=== PATIENT | female | born 1955 | race Asian ===

== ENCOUNTER 2017-03-31 13:48 | Emergency (ER) | payer OTHER ==
[2017-03-31 14:26] VITALS: BP 132/80
--- NOTE | 2017-04-01 12:51 | UC ---
Israel Suárez Salem, [facility] on 03/31/17 at 1421 . Altered Mental Status HPI - HPI Summary HPI Summary: In Room note: Patient is a 62 y/o female who presents to the with AMS since today. reports pt vomited 4 times yesterday and twice today. He also reports a high fever (in the 100s), fatigue, chills, and weakness. They deny any recent travels. note: Patient brought into the by her complaining of headache, fatigue, and according to the AMS. Her states she has had a high fever for 2 days. - History Of Current Complaint Chief Complaint: UCAlteredMentalStatus Stated Complaint: WEAKNESS AND HIGH FEVER Hx Obtained From: Patient Onset/Duration: Gradual Onset, Lasting Hours, Still Present Timing: Constant Severity Initially: Moderate Severity Currently: Moderate Character: Responsiveness Aggravating Factor(s): Nothing Alleviating Factor(s): Nothing Associated Signs And Symptoms: Positive: Vomiting, Headache, Weakness - Allergies/Home Medications Allergies/Adverse Reactions: Allergies Allergy/AdvReac Type Severity Reaction Status Date / Time Naproxen [From Naprosyn] Allergy Unknown Verified 10/17/16 14:32 Reaction Details PMH/Surg Hx/FS Hx/Imm Hx Endocrine History Of: Denies: Diabetes, Thyroid Disease Cardiovascular History Of: Reports: Hypertension Denies: Cardiac Disorders Respiratory History Of: Denies: COPD, Asthma GI/ History Of: Denies: Ulcer - Surgical History Surgical History: Yes - Family History Known Family History: Positive: Unknown - According to , non- contributory to current complaint. - Social History Alcohol Use: None Substance Use Type: None Smoking Status (MU): Never Smoked Tobacco Review of Systems Constitutional: Fever, Chills, Fatigue Gastrointestinal: Vomiting Neurological: Headache, Weakness, Other - AMS. All Other Systems Reviewed And Are Negative: Yes Physical Exam Triage Information Reviewed: Yes Appearance: Well-Nourished, Ill-Appearing, Pain Distress, Other: - Pt is laying and moaning on gurney. Vital Signs: Initial Vital Signs Temp 99.3 F 03/31/17 14:01 Pulse 82 03/31/17 14:01 Resp 22 03/31/17 14:01 BP 151/77 03/31/17 14:01 Pulse Ox 100 03/31/17 14:01 Vital Signs Reviewed: Yes Eyes: Positive: Conjunctiva Clear ENT: Positive: Other: - Her pupils appear reactive to light and she does open her eyes.. Negative: Muffled/hoarse voice Neck: Positive: Supple, No Lymphadenopathy Respiratory: Positive: Chest non-tender, Lungs clear - Anteriorly., Normal breath sounds, No respiratory distress Cardiovascular: Positive: RRR, No Murmur Abdomen Description: Positive: Nontender, No Organomegaly, Soft Bowel Sounds: Positive: Present Musculoskeletal: Positive: Strength Intact, Other: - Pt moves all four extremities on command. Neurological: Positive: Alert Psychological: Positive: Age Appropriate Behavior Skin: Negative: rashes Diagnostics - EKG Cardiac Rate: NL - NSR @ 83 bpm without ischemia. AMS Course/Dx - Course Course Of Treatment: Medications have been included in the original chart and reviewed. Patient with bp 151/57 and pulse ox of 98 was wheeled into . On gureveleth, she is supine, moaning, and responsive to commands. EKG shows NSR without ischemia. According to her she is less responsive than normal and according to pt she has a headache. Although the pt speaks Armenian, her was the primary batt packer for her. It was decided to transfer pt for further evaluation for weakness and headache. Patient is Urgent/Emergent. BP elevated due to current condition w/o HTN in PMH. - Differential Dx/Clinical Impression Differential Diagnosis/HQI/PQRI: Metabolic Disorder, Other - Infection? Viral syndrome? Provider Diagnoses: Vomiting, headache, fatigued; unclear etiology. - Provider Notifications Discussed Care Of Patient With: Dr. Castro () @ [id number]. Will accept. Discharge - Discharge Plan Condition: Guarded Disposition: TRANS HIGHER LVL OF CARE FAC Referrals: Ridge Mack MD [Primary Care Provider] - The documentation as recorded by the Israel kaur Salem accurately reflects the service I personally performed and the decisions made by me, Samir Boggs MD.
== END 2017-03-31 14:25 | disposition short-term general hospital (02) ==
LOC: UCEAST 13:48
DX: R11.10 Vomiting, unspecified (principal); R51 Headache; R53.83 Other fatigue; I10 Essential (primary) hypertension
CPT/HCPCS: 93005; 99213; G0463

== ENCOUNTER 2017-03-31 14:44 | Inpatient (IN) | payer OTHER ==
[2017-03-31] MEDS ORDERED: Ondansetron INJ* 2 MG/ML VIAL IV ONE (16:13)
[2017-03-31] MEDS ORDERED: NS 0.9% 1000 ML* 1,000 ML IV ONE (16:13)
[2017-03-31] MEDS ORDERED: Morphine INJ* 4 MG/ML 1 ML SYRINGE IV ONE ×2 (16:14→18:26)
[2017-03-31 16:16] LABS: Hematocrit 42 % (35-47); Hemoglobin 13.9 g/dl (12.0-16.0); Mean Corpuscular HGB Conc 34 g/dl (31-36); Mean Corpuscular Hemoglobin 30 pg (27-31); Mean Corpuscular Volume 89 fL (80-97); Mean Platelet Volume 9 um3 (7.4-10.4); Red Blood Count 4.66 10^6/ul (4.0-5.4); Red Cell Distribution Width 13 % (10.5-15); White Blood Count 15.1 10^3/ul (3.5-10.8)
--- NOTE | 2017-03-31 16:35 | RAD ---
INDICATION: Weakness COMPARISON: Chest x-ray dated June 14, 2009 TECHNIQUE: Single AP portable view of the chest was obtained. FINDINGS: Image quality is compromised due to the relative inferiority of a portable chest x-ray. The heart and mediastinum exhibit normal size and contour. The lungs are grossly clear. There is no evidence of a large pleural effusion. Visualized bones are normal for the patient's age. IMPRESSION: No radiographic evidence for acute cardiopulmonary abnormality on this portable chest x-ray.
[2017-03-31 16:43] LABS: Albumin 4.2 g/dL (3.2-5.2); BUN/Creatinine Ratio 29.7 (8-20); Calcium 9.6 mg/dL (8.6-10.3); EGFR African American 120.5 (>60); EGFR Non-African American 93.7 (>60); Globulin 4.1 g/dL (2-4); Potassium 4.1 mmol/L (3.5-5.0); Total Bilirubin 0.7 mg/dL (0.2-1.0); Total Protein 8.3 g/dL (6.4-8.9)
[2017-03-31] MEDS ORDERED: Iohexol 350* (CONTRAST) 500 ML MDV IV ONE (17:01)
--- NOTE | 2017-03-31 17:49 | RAD ---
INDICATION: Vertigo and headache COMPARISON: None. TECHNIQUE: Contiguous axial sections of the brain were obtained from the skull base to the vertex without contrast. FINDINGS: Involving the right parietal and temporal lobe there is an intracranial hemorrhage that measures 3.4 x 5.3 cm in the axial plane and 4.1 cm in the cephalocaudal projection. There is surrounding vasogenic edema. Elsewhere the brain is normal in appearance exhibiting normal vicente-white matter differentiation. There is a small amount of mass effect exerted on the right posterior ventricular horn effacing the right posterior ventricle. Overall there is a small degree of 3 mm right to left midline shift. There is currently no evidence of tentorial herniation. No significant focal osseous abnormality is present. There is a fusion of the bilateral mastoid air cells more severe on the right than the left. There is a small amount of mucosal thickening of the ethmoid air cells. IMPRESSION: CT findings are compatible with intraparenchymal bleed involving the right posterior parietal and temporal lobes as described above. Findings reported Dr. Castro over the telephone at 1745 hours on March 31, 2017.
[2017-03-31] MEDS ORDERED: Morphine INJ* 2 MG/ML 1 ML SYRINGE IV PRN (18:33)
--- NOTE | 2017-03-31 18:33 | ED ---
Maximo Suárez Rebecca, scribed for Yasemin Castro MD on 03/31/17 at 1605 . Dizziness - HPI Summary HPI Summary: Pt is a 62 y/o F BIBA referred from [facility] who presents to ED c/o moderate dizziness characterized as the room spinning. Sx began suddenly yesterday morning and have been constant since onset. Sx aggravated and alleviated by nothing. Additionally c/o VARGAS, generalized weakness and fatigue. VARGAS is currently moderate, ranked 6/10. Pt reports she does not typically get HAs. Denies ear pain and diplopia. - History Of Current Complaint Chief Complaint: EDGeneral Stated Complaint: WEAKNESS Time Seen by Provider: 03/31/17 15:48 Hx Obtained From: Patient Onset/Duration: Still Present, Suddenly Timing: Constant Severity Initially: Moderate Severity Currently: Moderate Character: Room Spinning Aggravating Factor(s): Nothing Alleviating Factor(s): Nothing Associated Signs And Symptoms: Positive: Other: - VARGAS, generalized weakness, fatigue - Allergies/Home Medications Allergies/Adverse Reactions: Allergies Allergy/AdvReac Type Severity Reaction Status Date / Time Naproxen [From Naprosyn] Allergy Unknown Verified 10/17/16 14:32 Reaction Details Home Medications: Home Medications Acetaminophen TAB* [Tylenol TAB*] 650 mg PO Q6H PRN 03/31/17 [History Confirmed 03/31/17] Aspirin EC Low Dose* [Ecotrin EC Low Dose 81 MG*] 81 mg PO DAILY 03/31/17 [ History Confirmed 03/31/17] PMH/Surg Hx/FS Hx/Imm Hx Endocrine/Hematology History: Denies: Hx Diabetes, Hx Thyroid Disease Cardiovascular History: Reports: Hx Hypertension Respiratory History: Denies: Hx Asthma, Hx Chronic Obstructive Pulmonary Disease (COPD) GI History: Denies: Hx Ulcer - Cancer History Hx Chemotherapy: No Hx Radiation Therapy: No Infectious Disease History: No Infectious Disease History: Denies: Hx Clostridium Difficile, Hx Hepatitis, Hx Human Immunodeficiency Virus (HIV), Hx of Known/Suspected MRSA, Hx Shingles, Hx Tuberculosis, Hx Known/ Suspected VRE, Hx Known/Suspected VRSA, History Other Infectious Disease, Traveled Outside the [place] in Last 30 Days - Family History Known Family History: Negative: Hypertension - Social History Alcohol Use: None Substance Use Type: Reports: None Smoking Status (MU): Never Smoked Tobacco Review of Systems Positive: Fever, Other - Generalized weakness Negative: Diplopia Negative: Ear Ache Neurological: Other - Dizziness - room spinning Positive: Headache All Other Systems Reviewed And Are Negative: Yes Physical Exam - Summary Physical Exam Summary: General: Looks very uncomfortable and mildly ill appearing Skin: Warm, Skin Color Reflects Adequate Perfusion, Dry Eyes: EOMI, FERDINAND, no nystagmus ENT: Pharynx normal, TMs normal, no meningismus Neck: Supple, nontender Respiratory: CTA, breath sounds present, no rhonchi, no wheezes, no rales Cardiovascular: RRR, no murmur, no rub, no gallop Abdomen: Soft, nontender, Non-distended, no guarding, no rebound Bowel: Present Musculoskeletal: RHONDA, No edema Neuro: Sensory/motor intact, A&Ox3, CN intact 2-12 Psych: Affect/mood appropriate Triage Information Reviewed: Yes Vital Signs On Initial Exam: Initial Vitals Temp Pulse Resp BP Pulse Ox 99.1 F 83 16 133/76 100 03/31/17 14:57 03/31/17 14:57 03/31/17 14:57 03/31/17 14:57 03/31/17 14:57 Vital Signs Reviewed: Yes - [place] Coma Scale Coma Scale Total: 15 Diagnostics - Vital Signs Vital Signs Temp Pulse Resp BP Pulse Ox 03/31/17 15:02 79 16 99 03/31/17 15:00 133/76 03/31/17 14:57 99.1 F 83 16 133/76 100 - Laboratory Lab Results: Lab Results 03/31/17 03/31/17 03/31/17 Range/Units 14:00 14:00 14:00 WBC 15.1 H (3.5-10.8) 10^3/ul RBC 4.66 (4.0-5.4) 10^6/ul Hgb 13.9 (12.0-16.0) g/dl Hct 42 (35-47) % MCV 89 (80-97) fL MCH 30 (27-31) pg MCHC 34 (31-36) g/dl RDW 13 (10.5-15) % Plt Count 303 (150-450) 10^3/ul MPV 9 (7.4-10.4) um3 Neut % (Auto) 73.5 (38-83) % Lymph % (Auto) 21.5 L (25-47) % [place] % (Auto) 4.7 (1-9) % Eos % (Auto) 0 (0-6) % Baso % (Auto) 0.3 (0-2) % Absolute Neuts (auto) 11.1 H (1.5-7.7) 10^3/ul Absolute Lymphs (auto) 3.2 (1.0-4.8) 10^3/ul Absolute Monos (auto) 0.7 (0-0.8) 10^3/ul Absolute Eos (auto) 0 (0-0.6) 10^3/ul Absolute Basos (auto) 0 (0-0.2) 10^3/ul Absolute Nucleated RBC 0 10^3/ul Nucleated RBC % 0 INR (Anticoag Therapy) 0.93 (0.89-1.11) APTT 31.4 (26.0-36.3) seconds Sodium 134 (133-145) mmol/L Potassium 4.1 (3.5-5.0) mmol/L Chloride 101 (101-111) mmol/L Carbon Dioxide 24 (22-32) mmol/L Anion Gap 9 (2-11) mmol/L BUN 19 (6-24) mg/dL Creatinine 0.64 (0.51-0.95) mg/dL Est GFR ( Amer) 120.5 (>60) Est GFR (Non-Af Amer) 93.7 (>60) BUN/Creatinine Ratio 29.7 H (8-20) Glucose 112 H (70-100) mg/dL Calcium 9.6 (8.6-10.3) mg/dL Total Bilirubin 0.70 (0.2-1.0) mg/dL AST 32 (13-39) U/L ALT 27 (7-52) U/L Alkaline Phosphatase 61 (34-104) U/L Troponin I 0.00 (<0.04) ng/mL Total Protein 8.3 (6.4-8.9) g/dL Albumin 4.2 (3.2-5.2) g/dL Globulin 4.1 H (2-4) g/dL Albumin/Globulin Ratio 1.0 (1-3) Result Diagrams: 03/31/17 14:00 03/31/17 14:00 Lab Statement: Any lab studies that have been ordered have been reviewed, and results considered in the medical decision making process. - Radiology CXR Radiology Interpretation Completed By: Radiologist - No radiographic evidence for acute cardiopulmonary abnormality on this portable chest x-ray. - CT Brain CT CT Interpretation: Positive (See Comments) - CT findings are compatible with intraparenchymal bleed involving the right posterior parietal and temporal lobes as described above. Findings reported Dr. Castro over the telephone at 1745 hours on March 31, 2017. CT Interpretation Completed By: Radiologist - EKG 1453 Cardiac Rate: NL - 80 bpm EKG Rhythm: Sinus Rhythm ST Segment: Normal National Institutes Of Health - NIH Scale Level of Consciousness: Alert/Keenly Responsive Ask Patient the Month and His/Her Age: Both Correct Ask Pt to Open/Close Eyes and Skoog Machine Operator/Release Non-Paretic Hand: Both Correctly Best Gaze (Only Horizontal Eye Movement): Normal Visual Field Testing: No Visual Loss Facial Paresis-Pt to Smile & Close Eyes or Grimace Symmetry: Normal/Symmetrical Motor Function - Right Arm: No Drift-Holds 10 Seconds Motor Function - Left Arm: No Drift-Holds 10 Seconds Motor Function - Right Leg: No Drift-Holds 10 Seconds Motor Function - Left Leg: No Drift-Holds 10 Seconds Limb Ataxia-Must be out of Proportion to Weakness Present: Absent Sensory (Use Pinprick to Test Arms/Legs/Trunk/Face): Normal Best Language (Describe Picture, Name Items): No Aphasia Dysarthria (Read Several Words): Normal Extinction and Inattention: No Abnormality Total Score: 0 Dizzy Course/Dx - Course Course Of Treatment: 62 yo female with headache and vertigo with right temporal- parietal blood. Call made to Dr. Herrera who asked that pt be admitted to ICU by the hospitalist team and he will consult - Diagnoses Provider Diagnoses: Intracerebral bleed - Provider Notifications Discussed Care Of Patient with: Dr. Herrera, neuro surgeon, who advised that pt be admitted. Dr. Shelton, hopsitalist at 1742, who accepts pt for admission. Time Discussed With Above Provider: 17:35 Discharge - Discharge Plan Condition: Critical Disposition: ADMITTED TO [facility] documentation as recorded by the Maximo kaur Rebecca accurately reflects the service I personally performed and the decisions made by , Yasemin Castro MD.
[2017-03-31] MEDS ORDERED: Labetalol IV* 5 MG/ML 20 ML VIAL IV PUSH PRN (18:35)
--- NOTE | 2017-03-31 18:46 | RAD ---
CPT II: CPT II Codes: 3100F INDICATION: Vertigo and headache COMPARISON: None TECHNIQUE: A CT angiogram of the head and neck was performed with 80 cc of Omnipaque 350. Contiguous axial sections were obtained from the thoracic inlet through the reno-sparks of Pfeiffer. Images were reconstructed in the sagittal, coronal planes and in a 3-D volume rendered format. The distal cervical internal carotid artery diameter is used as the denominater for stenosis measurement. CTA NECK: The common and internal carotid arteries are patent without hemodynamically significant stenosis. Right: The right carotid bulb measures 7 mm in diameter. The inferior right internal carotid artery measures 6 mm in diameter. This yields approximately 14% degree stenosis. Left: The left carotid bulb measures 8 mm in diameter and the inferior most left internal carotid artery also measures approximately 8 mm yielding 0% stenosis. The vertebral arteries are patent without gross abnormality. CTA of the brain: As was depicted on the same day noncontrast CT of the brain, there is a 4.4 x 3.6 cm parenchymal bleed involving the right parietal and temporal lobes. The spleen measures 3.5 cm in cephalocaudal projection. There is no definite active extravasation into the bleed on the arterial phase imaging. The internal carotid, anterior and middle cerebral arteries appear are patent without high grade stenosis or occlusion. The vertebral, basilar and posterior cerebral arteries appear patent without high grade stenosis or occlusion. The left posterior communicating artery is either extremely diminutive or absent. No focal luminal filling defect, aneurysm or vascular malformation is seen. IMPRESSION: 1. Normal CT angiography of the head and neck. 2. Intraparenchymal bleed involving the right parietal and temporal lobes.
--- NOTE | 2017-03-31 19:02 | PN ---
Hospitalist Progress Note HOSPITALIST ADDENDUM Case reviewed and d/w A. Toni WOO. Mrs. Harden is a 62yo F with PMH of HTN, who presented to ED with c/o headache and lethargy. Labs, CT/CTA head reviewed. Found to have right parietal/temporal intraparenchymal bleed. On low dose lisinopril with apparent good BP control. On ASA as outpatient - last dose 2 days ago. Will admit to ICU, monitor BP closely, Neurosurgery already consulted. Plan to repeat CT in AM.
[2017-03-31] MEDS ORDERED: Acetaminophen SUPP* 650 MG SUPP PR PRN (19:37)
[2017-03-31] MEDS: Morphine INJ* 2 MG/ML 1 ML SYRINGE IV PRN (20:06)
--- NOTE | 2017-04-01 03:42 | HP ---
ADMISSION HISTORY AND PHYSICAL: DATE OF ADMISSION: 03/31/17 PRIMARY CARE PROVIDER: Ridge Mack MD ADMITTING PROVIDER: CHILO Gaitan. CONSULTING NEUROSURGEON: Santhosh Herrera MD ATTENDING PHYSICIAN: Leonie Jara MD * (dictated by CHILO Gaitan.) CHIEF COMPLAINT: Headache. HISTORY OF PRESENT ILLNESS: This is a 62-year-old female with a history of hypertension who presented to the emergency department with complaints of headache accompanied by her . Her provides majority of her history as her Japanese is fairly limited. The patient's headache started yesterday morning and became progressively worse. She had some associated generalized weakness and dizziness as well as associated backache and mild cough. No associated confusion or difficulty with balance or speech. No numbness or tingling. No obvious weakness or changes in speech. Her states that she has been in her usual state of health up until yesterday morning. No recent trauma. She has no personal history of cardiopulmonary disease. No similar complaints in the past. No prior hospitalizations. PAST MEDICAL HISTORY: Hypertension. PAST SURGICAL HISTORY: Hysterectomy. HOME MEDICATIONS: 1. Aspirin 81 mg p.o. daily. 2. Vitamin D3 1000 units p.o. daily. 3. Lisinopril 2.5 mg p.o. daily. 4. Acetaminophen 650 mg p.o. q.6 hours as needed for pain. FAMILY HISTORY: No history of stroke, aneurysm, or bleeding disorders. SOCIAL HISTORY: The patient is a [place] and her primary language is Tanzanian. She lives at home with her and son. No history of smoking or regular alcohol consumption. REVIEW OF SYSTEMS: As noted above in HPI. Otherwise, all systems reviewed and negative. PHYSICAL EXAMINATION GENERAL: This is a very pleasant middle aged [place] female who appears to be uncomfortable and accompanied by her who provides the majority of the translation. VITAL SIGNS: Initial vitals are temperature 99.1 degrees Fahrenheit, pulse 83 beats per minute, respiratory rate 16, oxygen saturation 100% on 2 L via nasal cannula, blood pressure 133/76 mmHg. HEENT: Head is normocephalic and atraumatic. Mucous membranes are pink and moist. RESPIRATORY: Lungs are clear to auscultation without wheezes, crackles, or rhonchi. CARDIOVASCULAR: Heart has a regular rate and rhythm without murmurs, rubs, or gallops. ABDOMEN: Soft and nontender to palpation. EXTREMITIES: No lower extremity edema. SKIN: Limited exam shows no concerning rashes or lesions. NEURO: The patient's speech is intact. She is alert and appropriately oriented with a GCS of 15. She has a very slight left facial droop, but otherwise cranial nerves II through XII are intact. She has no gross sensation deficit. Strength is 5/5 in all extremities. Gait was not specifically assessed. LABORATORY EVALUATION: CBC shows white blood cell count of 15,100, hemoglobin of 13.9 g/dL and platelet count of 303,000. INR normal at 0.93. PTT normal at 31.4. Comprehensive metabolic panel is unremarkable with sodium of 134 mmol/L, potassium 4.1. BUN 19, creatinine 0.64 with an estimated GFR of 93. Random glucose of 112 mg/dL. Transaminases and total bilirubin within normal limits. Troponin negative at 0. ASSESSMENT AND PLAN: This is a 62-year-old female with history of hypertension who presents with what appears to be a spontaneous intracranial hemorrhage. 1. Intracranial hemorrhage - this appears to be spontaneous in nature. No associated trauma or severe hypertension. No known family history of bleeding disorders. The patient is mentating well with a minimal midline shift and no evidence of cerebral herniation. Neurosurgeon, Dr. Herrera has been consulted in the emergency department, he recommends admission to ICU for further monitoring. We will maintain head of bed at [address] Herrera recommends again seizure prophylaxis at this time. Recommends repeat CT scan at approximately 5 a.m. tomorrow morning, which will be approximately 12 hours since her initial scan. We will maintain blood pressure, systolic pressure less than 150 mmHg. Her last dose of aspirin was approximately 2 days ago, she believes that she last took a dose perhaps on 03/28/17. At this time, her deficits are rather mild. We will ask nursing to perform neurologic checks every 4 hours overnight and perform a bedside swallow evaluation at this time. CTA has not been officially read at this time, but has been reviewed personally by Dr. Herrera who did not see any major aneurysmal changes that would indicate need for transfer at this time. 2. History of hypertension: The patient is normotensive in the emergency department and just on low dose lisinopril at home. We will manage her blood pressure with IV labetalol at this time with goal of systolic pressure less than 150 mmHg. 3. Code status: The patient is full code. 4. Healthcare proxy is the patient's . 5. DVT prophylaxis - SCD's. Chemical prophylaxis is contraindicated. 6. Disposition: The patient is being admitted to inpatient ICU care with an expected length of stay to be greater than 2 midnights. CHILO GAITAN CC: Ridge Mack MD* [id number]/CPS #: [id number] MTDD
[2017-04-01] MEDS: Morphine INJ* 2 MG/ML 1 ML SYRINGE IV PRN ×2 (05:21→10:22)
[2017-04-01 05:43] LABS: Hematocrit 40 % (35-47); Hemoglobin 13.7 g/dl (12.0-16.0); Mean Corpuscular HGB Conc 34 g/dl (31-36); Mean Corpuscular Hemoglobin 30 pg (27-31); Mean Corpuscular Volume 89 fL (80-97); Mean Platelet Volume 8 um3 (7.4-10.4); Red Blood Count 4.53 10^6/ul (4.0-5.4); Red Cell Distribution Width 13 % (10.5-15)
[2017-04-01 05:55] LABS: BUN/Creatinine Ratio 37.3 (8-20); Calcium 9.1 mg/dL (8.6-10.3); EGFR African American 132.4 (>60); EGFR Non-African American 102.9 (>60); Potassium 3.7 mmol/L (3.5-5.0)
--- NOTE | 2017-04-01 07:43 | RAD ---
HISTORY: Monitor intracranial hemorrhage COMPARISONS: March 31, 2017 at 5:05 PM TECHNIQUE: Multiple contiguous axial CT scans were obtained of the head without intravenous contrast. FINDINGS: HEMORRHAGE/INFARCT: Again noted is intraparenchymal hematoma centered in the right temporal lobe and inferior parietal lobe. When measured at comparable levels, this is stable from the previous examination. Elsewhere, there is no hemorrhage or acute infarct. MASSES/SHIFT: There is minimal subfalcine shift to the left, of approximately 0.4 cm. EXTRA-AXIAL SPACES: There are no extra-axial fluid collections. SULCI AND VENTRICLES: There is mass effect upon the right lateral ventricle and third ventricle CEREBRUM: As noted above, there is intraparenchymal hematoma centered within the right temporal lobe and inferior parietal lobe with extension into the occipital lobe. This stable in size and extent from the earlier examination of March 31, 2017. There is minimal associated vasogenic edema. BRAINSTEM: There are no focal parenchymal abnormalities. CEREBELLUM: There are no focal parenchymal abnormalities. VESSELS: The vessels are grossly normal. PARANASAL SINUSES: The paranasal sinuses are clear. There are bilateral mastoid effusions ORBITS: The orbits are unremarkable. BONES AND SOFT TISSUE: No bone or soft tissue abnormalities are noted. OTHER: None IMPRESSION: STABLE RIGHT CEREBRAL HEMATOMA WITH MINIMAL SUBFALCINE SHIFT TO THE LEFT
[2017-04-01] MEDS: Mannitol 25% (12.5 GM) 50 ML* 12.5 GM/50 ML VIAL IV SCH ×3 (08:00→21:14)
--- NOTE | 2017-04-01 09:55 | CONSULT ---
Consult Consult: Neurosurgery Consult Date of consult: 04/01/17 Reason for consult: Intracranial hemorrhage HPI: This is a 62 year old female with past medical history significant for hypertension, controlled with medication, and taking aspirin 81mg who presented to the [facility] ED with complaint of headache and dizziness.The headache began yesterday morning and worsened throughout the day prompting medical evaluation. No recent head trauma or falls. CT of the brain on 03/31/17 shows intracranial hemorrhage of the right parietal and temporal lobes. She was admitted to the ICU for further work up and monitoring. This morning she continues to complain of a frontal headache, unchanged from yesterday. She also reports dizziness and a sore throat but denies pain elsewhere. She denies vision changes, hearing changes, difficulty swallowing, nausea, numbness, tingling and weakness in the upper and lower extremities. It is difficult to gather a history and ROS from the patient secondary to language barrier. However, her is able to assist with translations. Past medical history: 1. Hypertension Past surgical history: 1. Hysterectomy Allergies: 1. Naproxen Home medications: 1. Cholecalciferol TAB* [Vitamin D TAB*] 1,000 unit PO DAILY 10/17/16 [History Confirmed 03/31/17] 2. Lisinopril [Lisinopril 2.5 MG-] 2.5 mg PO DAILY 10/17/16 [History Confirmed 03/31/17] 3. Acetaminophen TAB* [Tylenol TAB*] 650 mg PO Q6H PRN 03/31/17 [History Confirmed 03/31/17] 4. Aspirin EC Low Dose* [Ecotrin EC Low Dose 81 MG*] 81 mg PO DAILY 03/31/17 [ History Confirmed 03/31/17] Social history: This patient lives at home with her . She is a nonsmoker and does not consume alcohol. ROS: Full ROS completed; pertinent findings stated in HPI and all others negative. Responses limited secondary to language barrier. Physical Exam: Vital Signs: Temp Pulse Resp BP Pulse Ox 99.1 F 72 26 120/51 98 04/01/17 09:00 04/01/17 09:00 04/01/17 09:00 04/01/17 09:00 04/01/17 09:00 General: Alert, laying in bed with hands on forehead. Complains of headache. HEENT: Head is normocephalic and atraumatic. Slight left eye ptosis and pupil is irregular; per and patient this is baseline. EOMI. Gross hearing intact. Moist mucus membranes. Neck: Supple, symmetric and nontender. CV: Regular rate and rhythm. Pedal pulses palpable. Radial pulses 2+ and equal. Lungs: Breathing is nonlabored and clear. Abdomen: Normoactive bowel sounds. Abdomen is flat, nondistended and nontender. Neuro: Speech is clear and coherent. Answers questions appropriately. CN II-XII intact. Strength 5/5 in upper and lower extremities. Sensation intact throughout. Extremities: Full ROM in upper and lower extremities. Imagin. CT brain on 03/31/17 shows right intracranial hemorrhage. 2. Follow up CT brain on 04/01/27 shows right intracranial hemorrhage unchanged from previous scan. Assessment: This is a 62 year old female with past medical history significant for HTN controlled with medication and on aspirin 81mg who presented to the [facility] ED with headache and was found to have right ICH. She is admitted to the ICU for continued neuro monitoring and observation. Frontal headache and dizziness continues. Repeat CT brain is unchanged. She is neurologically stable at this time. There is no indication for surgery at this time. Plan: 1. Continue neuro checks. 2. Continue bedrest and HOB 30 degrees. 3. Delarosa catheter 4. Mannitol 25% (12.5gm) 50ml, 12.5gm IV every 6 hours. IV infusion over 30-60 minutes. 5. LR 75ml/hour
--- NOTE | 2017-04-01 10:24 | PN ---
Subjective Date of Service: 04/01/17 Interval History: This is a 62 yo female admitted with spontaneous R sided intracranial hemorrhage with fairly minimal deficits. This am, patient is complaining of persistent VARGAS which is quite severe. She passed bedside swallow eval by nursing at admission. No new deficits noted overnight. Objective Active Medications: Acetaminophen (Tylenol Supp*) 650 mg [place] Q4H PRN PRN Reason: Pain/fever Last Admin: 03/31/17 23:59 Dose: 650 mg Lactated Ringer's (Lactated Ringers 1000 Ml Bag*) 1,000 mls @ 75 mls/hr IV PER RATE [facility] Last Admin: 04/01/17 08:00 Dose: 75 mls/hr Labetalol HCl (Trandate Iv*) 10 mg IV PUSH Q2H PRN PRN Reason: sBP>150 mmHg Mannitol (Mannitol 25% (12.5 Gm) 50 Ml*) 12.5 gm IV Q6H [facility] Last Admin: 04/01/17 08:00 Dose: 12.5 gm Morphine Sulfate (Morphine Inj (Syringe)*) 2 mg IV Q4H PRN PRN Reason: PAIN Last Admin: 04/01/17 05:21 Dose: 2 mg Ondansetron HCl (Zofran Inj*) 4 mg IV Q4H PRN PRN Reason: NAUSEA/VOMITING Vital Signs: Temp Pulse Resp BP Pulse Ox 99.1 F 72 26 120/51 98 04/01/17 09:00 04/01/17 09:00 04/01/17 09:00 04/01/17 09:00 04/01/17 09:00 Appearance: Middle aged female who appears uncomfortable. Speaks some [place] Irish. Respiratory: Symmetrical Chest Expansion and Respiratory Effort, Clear to Auscultation Cardiovascular: NL Sounds; No Murmurs; No JVD, RRR Abdominal: NL Sounds; No Tenderness; No Distention Extremities: No Edema Skin: No Rash or Ulcers Neurological: Alert and Oriented x 3, - - very mild L facial droop noted, strength and ROM intact in all extremities Result Diagrams: 04/01/17 05:25 04/01/17 05:25 Additional Lab and Data: . Microbiology and Other Data: Microbiology 03/31/17 22:05 Nasal Screen MRSA (PCR)([facility]) - Final Nasal Mrsa Negative Diagnostic Imaging: CT head 03/31 - R posterior parietal/temporal hemorrhage with associated vasogenic edema and 3mm midline shift Ct head 04/01 - Essentially unchanged from initial scan with minimal midline shift Assess/Plan/Problems-Billing Assessment: This is a 62 yo female with a h/o controlled HTN who presents with spontaneous ICH. - Patient Problems (1) Intracranial hemorrhage Comment: R posterior parietal/temporal lobe Appears spontaneous, nl CTA, no recent trauma ASA has been discontinued Minimal deficit with no change in exam overnight, bleed appears stable on repeat imaging Mannitol has been initiated by neurosurgery team due to complaint of persistent VARGAS Appreciated neurosurgery involvement Maintain bedside and HOB at 30 deg (2) HTN (hypertension) Comment: Controlled goal for sBP <150 mmHg (3) Full code status (4) DVT prophylaxis Comment: SCDs Status and Disposition: Inpatient, maintain ICU level monitoring
[2017-04-01] MEDS ORDERED: Morphine INJ* 2 MG/ML 1 ML SYRINGE IV PRN (12:01)
[2017-04-01] MEDS: oxyCODONE/Acetamin 5/325 MG* TAB PO PRN ×2 (16:00→22:08)
[2017-04-02] MEDS: Mannitol 25% (12.5 GM) 50 ML* 12.5 GM/50 ML VIAL IV SCH ×4 (04:15→20:02)
[2017-04-02] MEDS: Morphine INJ* 4 MG/ML 1 ML SYRINGE IV PRN ×3 (07:38→20:03)
--- NOTE | 2017-04-02 08:11 | PN ---
Progress Note - Progress Note SOAP: Subjective: [] More alert Complains of feeling tired, hot Headache seems better Objective: []Neuro intact Assessment: []Stable Plan: []Decrease Mannitol to Q 12h Get F/U CT in AM
[2017-04-02 08:12] LABS: BUN/Creatinine Ratio 21.3 (8-20); Calcium 8.2 mg/dL (8.6-10.3); EGFR African American 172.1 (>60); EGFR Non-African American 133.8 (>60); Potassium 3.5 mmol/L (3.5-5.0)
--- NOTE | 2017-04-02 08:46 | PN ---
Subjective Date of Service: 04/02/17 Interval History: Patient reports some improvement in VARGAS this am, but still persistent. No n/v. Appetite good. No CP, SOB, abd pain. Reports fatigue and generalized weakness. No focal weakness. Objective Active Medications: Acetaminophen (Tylenol Tab*) 650 mg PO Q6H PRN PRN Reason: pain/fever Lactated Ringer's (Lactated Ringers 1000 Ml Bag*) 1,000 mls @ 75 mls/hr IV PER RATE [facility] Last Admin: 04/01/17 08:00 Dose: 75 mls/hr Labetalol HCl (Trandate Iv*) 10 mg IV PUSH Q2H PRN PRN Reason: sBP>150 mmHg Mannitol (Mannitol 25% (12.5 Gm) 50 Ml*) 12.5 gm IV Q12H [facility] Last Admin: 04/02/17 07:56 Dose: Not Given Morphine Sulfate (Morphine Inj (Syringe)*) 4 mg IV Q4H PRN PRN Reason: PAIN Last Admin: 04/02/17 07:38 Dose: 4 mg Ondansetron HCl (Zofran Inj*) 4 mg IV Q4H PRN PRN Reason: NAUSEA/VOMITING Oxycodone/Acetaminophen (Percocet 5/325 Tab*) 1 tab PO Q4H PRN PRN Reason: PAIN Last Admin: 04/01/17 22:08 Dose: 1 tab Vital Signs: Temp Pulse Resp BP Pulse Ox 100.3 F 72 15 110/51 95 04/02/17 08:30 04/02/17 08:30 04/02/17 08:30 04/02/17 08:30 04/02/17 08:30 Oxygen Devices in Use Now: Nasal Cannula Appearance: Fatigued appearing middle aged female in NAD. Accompanied by her . Sleeping upon entering room, but easily awakened to voice Respiratory: Symmetrical Chest Expansion and Respiratory Effort, Clear to Auscultation Cardiovascular: NL Sounds; No Murmurs; No JVD, RRR Abdominal: NL Sounds; No Tenderness; No Distention Extremities: No Edema Skin: No Rash or Ulcers Neurological: Alert and Oriented x 3, - - slight L ptosis noted this am, geospatial scientist otherwise intact, strength and ROM intact in extremities, sensation is grossly intact Result Diagrams: 04/01/17 05:25 04/02/17 07:45 Additional Lab and Data: . Microbiology and Other Data: Microbiology 03/31/17 22:05 Nasal Screen MRSA (PCR)([facility]) - Final Nasal Mrsa Negative Diagnostic Imaging: CT head 03/31 - R posterior parietal/temporal hemorrhage with associated vasogenic edema and 3mm midline shift Ct head 04/01 - Essentially unchanged from initial scan with minimal midline shift Assess/Plan/Problems-Billing Assessment: This is a 62 yo female with a h/o controlled HTN who presents with spontaneous ICH. - Patient Problems (1) Intracranial hemorrhage Comment: R posterior parietal/temporal lobe Appears spontaneous, nl CTA, no recent trauma ASA has been discontinued Minimal deficit without change in neuro exam Bleed appears stable on repeat imaging Mannitol decreased to q12h Appreciated neurosurgery involvement Maintain bedrest and HOB at 30 deg Plan for repeat CT tomorrow am with possible transfer from ICU and PT eval if stable (2) HTN (hypertension) Comment: Controlled goal for sBP <150 mmHg (3) Full code status (4) DVT prophylaxis Comment: SCDs Status and Disposition: Inpatient, maintain ICU level monitoring
[2017-04-02] MEDS: oxyCODONE/Acetamin 5/325 MG* TAB PO PRN ×2 (09:56→14:59)
[2017-04-03] MEDS: oxyCODONE/Acetamin 5/325 MG* TAB PO PRN ×3 (00:38→18:15)
[2017-04-03] MEDS: Morphine INJ* 4 MG/ML 1 ML SYRINGE IV PRN ×2 (05:45→16:26)
[2017-04-03 06:11] LABS: BUN/Creatinine Ratio 17.4 (8-20); Calcium 9.2 mg/dL (8.6-10.3); EGFR African American 176.4 (>60); EGFR Non-African American 137.2 (>60); Potassium 3.9 mmol/L (3.5-5.0)
--- NOTE | 2017-04-03 08:16 | RAD ---
HISTORY: Follow-up intracranial hemorrhage COMPARISONS: April 01, 2017 TECHNIQUE: Multiple contiguous axial CT scans were obtained of the head without intravenous contrast. FINDINGS: HEMORRHAGE/INFARCT: Again noted is a right temporoparietal parenchymal hematoma. This is similar in size extending to the previous examination. There is associated vasogenic edema. Elsewhere, there is no hemorrhage or acute infarct. MASSES/SHIFT: There is stable minimal subfalcine shift to the left of approximately 0.4 cm. EXTRA-AXIAL SPACES: There are no extra-axial fluid collections. SULCI AND VENTRICLES: There is mass effect upon the right lateral ventricle CEREBRUM: As noted above, there is a right temporoparietal intraparenchymal hematoma with associated vasogenic edema, stable in size and appearance compared to April 01, 2017. BRAINSTEM: There are no focal parenchymal abnormalities. CEREBELLUM: There are no focal parenchymal abnormalities. VESSELS: The vessels are grossly normal. PARANASAL SINUSES: The paranasal sinuses are clear. ORBITS: The orbits are unremarkable. BONES AND SOFT TISSUE: No bone or soft tissue abnormalities are noted. OTHER: None IMPRESSION: STABLE RIGHT TEMPOROPARIETAL INTRAPARENCHYMAL HEMATOMA WITH MINIMAL SUBFALCINE SHIFT TO THE LEFT
[2017-04-03] MEDS: Mannitol 25% (12.5 GM) 50 ML* 12.5 GM/50 ML VIAL IV SCH (08:22)
--- NOTE | 2017-04-03 09:42 | PN ---
Subjective Date of Service: 04/03/17 Interval History: Patient reports some improvement in her VARGAS, but it is still persistent. Appetite is improving. No abd pain, n/v. No cough or SOB. No focal weakness, numbness/tingling. Objective Active Medications: Acetaminophen (Tylenol Tab*) 650 mg PO Q6H PRN PRN Reason: pain/fever Labetalol HCl (Trandate Iv*) 10 mg IV PUSH Q2H PRN PRN Reason: sBP>150 mmHg Morphine Sulfate (Morphine Inj (Syringe)*) 4 mg IV Q4H PRN PRN Reason: PAIN Last Admin: 04/03/17 05:45 Dose: 4 mg Ondansetron HCl (Zofran Inj*) 4 mg IV Q4H PRN PRN Reason: NAUSEA/VOMITING Oxycodone/Acetaminophen (Percocet 5/325 Tab*) 1 tab PO Q4H PRN PRN Reason: PAIN Last Admin: 04/03/17 08:35 Dose: 1 tab Vital Signs: Temp Pulse Resp BP Pulse Ox 99.2 F 65 11 110/50 97 04/03/17 06:00 04/03/17 06:00 04/03/17 08:35 04/03/17 06:00 04/03/17 06:00 Appearance: Middle aged female who appears lethargic, but improving. Accompanied by her . Some broken Sami. Ears/Nose/Mouth/Throat: Mucous Membranes Moist Respiratory: Symmetrical Chest Expansion and Respiratory Effort, - - few rhonchi at lung bases Cardiovascular: RRR Abdominal: NL Sounds; No Tenderness; No Distention Extremities: No Edema Skin: No Rash or Ulcers Neurological: Alert and Oriented x 3, - - L ptosis ( confirms this is chronic for her), CN II-XII otherwise intact, ROM and strength intact in all 4 extremities Result Diagrams: 04/01/17 05:25 04/03/17 05:35 Additional Lab and Data: . Microbiology and Other Data: Microbiology 03/31/17 22:05 Nasal Screen MRSA (PCR)([facility]) - Final Nasal Mrsa Negative Diagnostic Imaging: CT head 03/31 - R posterior parietal/temporal hemorrhage with associated vasogenic edema and 3mm midline shift Ct head 04/01 - Essentially unchanged from initial scan with minimal midline shift CT head 04/03 - Stable, unchanged Assess/Plan/Problems-Billing Assessment: This is a 62 yo female with a h/o controlled HTN who presents with spontaneous ICH. - Patient Problems (1) Intracranial hemorrhage Comment: R posterior parietal/temporal lobe Appears spontaneous, nl CTA, no recent trauma ASA has been discontinued Minimal deficit without change in neuro exam Bleed appears stable on repeat imaging Appreciated neurosurgery involvement Discontinue mannitol Patient can come off bedrest and will request PT eval Plan for MRI early next week per neurosurgery recommendation (2) HTN (hypertension) Comment: Controlled goal for sBP <150 mmHg (3) Full code status (4) DVT prophylaxis Comment: SCDs Status and Disposition: Inpatient. Plan to transfer to telemetry floor
--- NOTE | 2017-04-03 10:00 | PN ---
Progress Note - Progress Note SOAP: Subjective: [More alert this morning. Right side headache persists but less severe than yesterday. States that she is tired and hungry this morning. Denies nausea, vision changes and dizziness. ] Objective: [ Vital Signs: Temp Pulse Resp BP Pulse Ox 99.2 F 65 11 110/50 97 04/03/17 06:00 04/03/17 06:00 04/03/17 08:35 04/03/17 06:00 04/03/17 06:00 General: Alert but tired. Neuro: Answers questions appropriately. Speech is clear. Follows commands. CN II -XII intact. Motor and sensory intact. Extremities: Full ROM throughout.] Assessment: [Neurologically stable. Repeat CT brain 04/03/17- Right ICH is unchanged from previous study on 04/01/17. ] Plan: [1. Slowly increase activity; up out of bed to chair with assistance. 2. Continue neuro checks. ]
[2017-04-03] MEDS: Ondansetron INJ* 2 MG/ML VIAL IV PRN (11:06)
[2017-04-04 05:28] LABS: BUN/Creatinine Ratio 18.2 (8-20); Calcium 9.3 mg/dL (8.6-10.3); EGFR African American 143.6 (>60); EGFR Non-African American 111.6 (>60); Potassium 3.7 mmol/L (3.5-5.0)
[2017-04-04] MEDS: Morphine INJ* 4 MG/ML 1 ML SYRINGE IV PRN (07:51)
[2017-04-04] MEDS: Acetaminophen TAB* 325 MG PO PRN ×2 (07:52→19:40)
--- NOTE | 2017-04-04 08:38 | PN ---
Progress Note - Progress Note SOAP: Subjective: [Persistent but improving headache. Denies nausea, vomiting, dizziness and vision changes. Offers no further complaints. Objective: [ Vital Signs: Temp Pulse Resp BP Pulse Ox 99.4 F 66 18 122/67 98 04/04/17 07:31 04/04/17 07:31 04/04/17 07:51 04/04/17 07:31 04/04/17 07:31 General: More alert and conversational today. Neuro: Motor and sensory intact. CN II-XII intact. Speech is clear and answers questions appropriately. Extremities: Full ROM] Assessment: [Neurologically stable. Repeat CT 04/03/17 unchanged from previous studies. No surgery indicated. Patient transferred to telemetry floor yesterday.] Plan: [1. Continue to increase activity. 2. Continue pain management of VARGAS. ]
--- NOTE | 2017-04-04 11:03 | PN ---
Subjective Date of Service: 04/04/17 Interval History: Patient seen and examined at bedside. Denies any acute complaints. Reports headache is "a little better." Denies tingling/numbness, focal weakness, CP, SOB, n/v. Family History: Unchanged from Admission Social History: Unchanged from Admission Past Medical History: Unchanged from Admission Objective Active Medications: Acetaminophen (Tylenol Tab*) 650 mg PO Q6H PRN PRN Reason: pain/fever Last Admin: 04/04/17 07:52 Dose: 650 mg Labetalol HCl (Trandate Iv*) 10 mg IV PUSH Q2H PRN PRN Reason: sBP>150 mmHg Morphine Sulfate (Morphine Inj (Syringe)*) 4 mg IV Q4H PRN PRN Reason: PAIN Last Admin: 04/04/17 07:51 Dose: 4 mg Ondansetron HCl (Zofran Inj*) 4 mg IV Q4H PRN PRN Reason: NAUSEA/VOMITING Last Admin: 04/03/17 11:06 Dose: 4 mg Oxycodone/Acetaminophen (Percocet 5/325 Tab*) 1 tab PO Q4H PRN PRN Reason: PAIN Last Admin: 04/03/17 18:15 Dose: 1 tab Vital Signs 04/03/17 04/03/17 04/03/17 11:29 12:31 15:37 Temperature 97.7 F 98.4 F Pulse Rate 67 60 62 Respiratory 11 16 12 Rate Blood Pressure 110/60 124/49 (mmHg) O2 Sat by Pulse 90 92 100 Oximetry 04/03/17 04/03/17 04/03/17 16:26 17:26 18:15 Temperature Pulse Rate Respiratory 18 16 18 Rate Blood Pressure (mmHg) O2 Sat by Pulse Oximetry 04/03/17 04/03/17 04/03/17 20:00 20:06 20:15 Temperature 99.1 F Pulse Rate 66 Respiratory 16 15 15 Rate Blood Pressure 135/69 (mmHg) O2 Sat by Pulse 99 Oximetry 04/03/17 04/04/17 04/04/17 23:22 00:22 02:44 Temperature 97.5 F Pulse Rate 59 58 62 Respiratory 16 Rate Blood Pressure 119/57 (mmHg) O2 Sat by Pulse 94 Oximetry 04/04/17 04/04/17 04/04/17 04:18 06:37 07:31 Temperature 98.4 F 99.4 F Pulse Rate 59 64 66 Respiratory 16 16 Rate Blood Pressure 110/49 122/67 (mmHg) O2 Sat by Pulse 96 98 Oximetry 04/04/17 04/04/17 04/04/17 07:51 08:00 08:51 Temperature Pulse Rate Respiratory 18 18 16 Rate Blood Pressure (mmHg) O2 Sat by Pulse Oximetry Appearance: Middle aged female, lying in bed, NAD. Patient speaks limited Japanese but follow commands. at bedside. Ears/Nose/Mouth/Throat: Mucous Membranes Moist Neck: NL Appearance and Movements; NL JVP Respiratory: Symmetrical Chest Expansion and Respiratory Effort, Clear to Auscultation Cardiovascular: NL Sounds; No Murmurs; No JVD, RRR Abdominal: NL Sounds; No Tenderness; No Distention Extremities: No Edema Neurological: Alert and Oriented x 3, - - left facial droop - reports this is chronic. Patient with Lines/Tubes/Other Access: Clean, Dry and Intact Peripheral IV Nutrition: Taking PO's Result Diagrams: 04/01/17 05:25 04/04/17 04:32 Additional Lab and Data: . Microbiology and Other Data: Microbiology 03/31/17 22:05 Nasal Screen MRSA (PCR)([facility]) - Final Nasal Mrsa Negative Diagnostic Imaging: CT head 03/31 - R posterior parietal/temporal hemorrhage with associated vasogenic edema and 3mm midline shift Ct head 04/01 - Essentially unchanged from initial scan with minimal midline shift CT head 04/03 - Stable, unchanged Assess/Plan/Problems-Billing Assessment: This is a 62 yo female with a h/o controlled HTN who presents with spontaneous ICH. - Patient Problems (1) Intracranial hemorrhage Code(s): I62.9 - NONTRAUMATIC INTRACRANIAL HEMORRHAGE, UNSPECIFIED Comment: R posterior parietal/temporal lobe Appears spontaneous, nl CTA, no recent trauma ASA has been discontinued Minimal deficit without change in neuro exam Bleed appears stable on repeat imaging Appreciated neurosurgery involvement Continue PT/OT/speech eval, PMRU referral Plan for MRI early next week per neurosurgery recommendation (2) HTN (hypertension) Code(s): I10 - ESSENTIAL (PRIMARY) HYPERTENSION Comment: Controlled goal for sBP <150 mmHg (3) DVT prophylaxis Code(s): [id number] - Comment: SCDs (4) Full code status Code(s): Z78.9 - OTHER SPECIFIED HEALTH STATUS Status and Disposition: Inpatient. PMRU referral. Continue PT/OT/speech.
[2017-04-05 06:26] LABS: BUN/Creatinine Ratio 24.1 (8-20)
[2017-04-05] MEDS: oxyCODONE/Acetamin 5/325 MG* TAB PO PRN ×2 (08:40→13:32)
--- NOTE | 2017-04-05 11:01 | PN ---
Subjective Date of Service: 04/05/17 Family History: Unchanged from Admission Social History: Unchanged from Admission Past Medical History: Unchanged from Admission Objective Active Medications: Acetaminophen (Tylenol Tab*) 650 mg PO Q6H PRN PRN Reason: pain/fever Last Admin: 04/04/17 19:40 Dose: 650 mg Docusate Sodium (Colace Cap*) 100 mg PO DAILY PRN PRN Reason: CONSTIPATION Labetalol HCl (Trandate Iv*) 10 mg IV PUSH Q2H PRN PRN Reason: sBP>150 mmHg Morphine Sulfate (Morphine Inj (Syringe)*) 4 mg IV Q4H PRN PRN Reason: PAIN Last Admin: 04/04/17 07:51 Dose: 4 mg Ondansetron HCl (Zofran Inj*) 4 mg IV Q4H PRN PRN Reason: NAUSEA/VOMITING Last Admin: 04/03/17 11:06 Dose: 4 mg Oxycodone/Acetaminophen (Percocet 5/325 Tab*) 1 tab PO Q4H PRN PRN Reason: PAIN Last Admin: 04/05/17 08:40 Dose: 1 tab Polyethylene Glycol/Electrolytes (Miralax*) 17 gm PO DAILY PRN PRN Reason: CONSTIPATION Senna (Senokot Tab*) 2 tab PO BEDTIME PRN PRN Reason: CONSTIPATION Vital Signs 04/04/17 04/04/17 04/04/17 11:46 16:04 19:26 Temperature 98.9 F 98.2 F 98.2 F Pulse Rate 60 62 76 Respiratory 16 16 16 Rate Blood Pressure 113/57 118/56 135/68 (mmHg) O2 Sat by Pulse 96 96 94 Oximetry 04/04/17 04/05/17 04/05/17 20:00 00:06 04:41 Temperature 98.2 F 98.1 F Pulse Rate 63 71 Respiratory 16 20 20 Rate Blood Pressure 122/62 116/67 (mmHg) O2 Sat by Pulse 93 97 Oximetry 04/05/17 04/05/17 07:44 08:40 Temperature 99.0 F Pulse Rate 76 Respiratory 16 16 Rate Blood Pressure 118/68 (mmHg) O2 Sat by Pulse 96 Oximetry Oxygen Devices in Use Now: Nasal Cannula Result Diagrams: 04/01/17 05:25 04/05/17 05:22 Additional Lab and Data: . Microbiology and Other Data: Microbiology 03/31/17 22:05 Nasal Screen MRSA (PCR)([facility]) - Final Nasal Mrsa Negative Diagnostic Imaging: CT head 03/31 - R posterior parietal/temporal hemorrhage with associated vasogenic edema and 3mm midline shift Ct head 04/01 - Essentially unchanged from initial scan with minimal midline shift CT head 04/03 - Stable, unchanged Assess/Plan/Problems-Billing Assessment: This is a 62 yo female with a h/o controlled HTN who presents with spontaneous ICH. - Patient Problems (1) Intracranial hemorrhage Code(s): I62.9 - NONTRAUMATIC INTRACRANIAL HEMORRHAGE, UNSPECIFIED Comment: R posterior parietal/temporal lobe Appears spontaneous, nl CTA, no recent trauma ASA has been discontinued Minimal deficit without change in neuro exam Bleed appears stable on repeat imaging Appreciated neurosurgery involvement Continue PT/OT/speech eval, PMRU referral Plan for MRI early next week per neurosurgery recommendation (2) HTN (hypertension) Code(s): I10 - ESSENTIAL (PRIMARY) HYPERTENSION Comment: Controlled goal for sBP <150 mmHg (3) DVT prophylaxis Code(s): [id number] - Comment: SCDs (4) Full code status Code(s): Z78.9 - OTHER SPECIFIED HEALTH STATUS Status and Disposition: Inpatient. PMRU referral. Continue PT/OT/speech.
--- NOTE | 2017-04-05 13:00 | PN ---
Subjective Date of Service: 04/05/17 Interval History: Patient seen and examined at bedside. No acute complaints. VARGAS improved Has been resting comfortably and sleeping intermittently throughout the morning. Family History: Unchanged from Admission Social History: Unchanged from Admission Past Medical History: Unchanged from Admission Objective Active Medications: Acetaminophen (Tylenol Tab*) 650 mg PO Q6H PRN PRN Reason: pain/fever Last Admin: 04/04/17 19:40 Dose: 650 mg Docusate Sodium (Colace Cap*) 100 mg PO DAILY PRN PRN Reason: CONSTIPATION Labetalol HCl (Trandate Iv*) 10 mg IV PUSH Q2H PRN PRN Reason: sBP>150 mmHg Morphine Sulfate (Morphine Inj (Syringe)*) 4 mg IV Q4H PRN PRN Reason: PAIN Last Admin: 04/04/17 07:51 Dose: 4 mg Ondansetron HCl (Zofran Inj*) 4 mg IV Q4H PRN PRN Reason: NAUSEA/VOMITING Last Admin: 04/03/17 11:06 Dose: 4 mg Oxycodone/Acetaminophen (Percocet 5/325 Tab*) 1 tab PO Q4H PRN PRN Reason: PAIN Last Admin: 04/05/17 08:40 Dose: 1 tab Polyethylene Glycol/Electrolytes (Miralax*) 17 gm PO DAILY PRN PRN Reason: CONSTIPATION Senna (Senokot Tab*) 2 tab PO BEDTIME PRN PRN Reason: CONSTIPATION Vital Signs 04/04/17 04/04/17 04/04/17 16:04 19:26 20:00 Temperature 98.2 F 98.2 F Pulse Rate 62 76 Respiratory 16 16 16 Rate Blood Pressure 118/56 135/68 (mmHg) O2 Sat by Pulse 96 94 Oximetry 04/05/17 04/05/17 04/05/17 00:06 04:41 07:44 Temperature 98.2 F 98.1 F 99.0 F Pulse Rate 63 71 76 Respiratory 20 20 16 Rate Blood Pressure 122/62 116/67 118/68 (mmHg) O2 Sat by Pulse 93 97 96 Oximetry 04/05/17 04/05/17 04/05/17 08:40 10:40 11:20 Temperature 99.1 F Pulse Rate 66 Respiratory 16 16 18 Rate Blood Pressure 120/63 (mmHg) O2 Sat by Pulse 97 Oximetry Oxygen Devices in Use Now: None Appearance: Middle aged female, lying in bed, NAD Eyes: No Scleral Icterus Ears/Nose/Mouth/Throat: Mucous Membranes Moist Neck: NL Appearance and Movements; NL JVP Respiratory: Symmetrical Chest Expansion and Respiratory Effort, Clear to Auscultation Cardiovascular: NL Sounds; No Murmurs; No JVD, RRR Abdominal: NL Sounds; No Tenderness; No Distention Neurological: Alert and Oriented x 3, - - left facial droop (chronic per ), some left sided neglect, CN II-XII grossly intact Lines/Tubes/Other Access: Clean, Dry and Intact Peripheral IV Nutrition: Taking PO's Result Diagrams: 04/01/17 05:25 04/05/17 05:22 Additional Lab and Data: . Microbiology and Other Data: Microbiology 03/31/17 22:05 Nasal Screen MRSA (PCR)(SJ) - Final Nasal Mrsa Negative Diagnostic Imaging: CT head 03/31 - R posterior parietal/temporal hemorrhage with associated vasogenic edema and 3mm midline shift Ct head 04/01 - Essentially unchanged from initial scan with minimal midline shift CT head 04/03 - Stable, unchanged Assess/Plan/Problems-Billing Assessment: This is a 62 yo female with a h/o controlled HTN who presents with spontaneous ICH. - Patient Problems (1) Intracranial hemorrhage Code(s): I62.9 - NONTRAUMATIC INTRACRANIAL HEMORRHAGE, UNSPECIFIED Comment: R posterior parietal/temporal lobe Appears spontaneous, nl CTA, no recent trauma ASA has been discontinued Minimal deficit without change in neuro exam Bleed appears stable on repeat imaging Appreciated neurosurgery involvement Continue PT/OT/speech eval, PMRU referral Plan for MRI early next week per neurosurgery recommendation (2) HTN (hypertension) Code(s): I10 - ESSENTIAL (PRIMARY) HYPERTENSION Comment: Controlled goal for sBP <150 mmHg (3) DVT prophylaxis Code(s): PTA3596 - Comment: SCDs (4) Full code status Code(s): Z78.9 - OTHER SPECIFIED HEALTH STATUS Status and Disposition: Inpatient. PMRU referral. Continue PT/OT/speech.
[2017-04-05] MEDS: Docusate CAP* 100 MG PO PRN (13:29)
[2017-04-05] MEDS: Polyethylene Glycol 3350* 17 GM PACKET PO PRN (13:29)
[2017-04-05] MEDS: Senna TAB PO PRN (19:57)
[2017-04-06] MEDS: Morphine INJ* 4 MG/ML 1 ML SYRINGE IV PRN (07:06)
[2017-04-06] MEDS: Docusate CAP* 100 MG PO PRN (08:32)
[2017-04-06] MEDS: Polyethylene Glycol 3350* 17 GM PACKET PO PRN (08:32)
[2017-04-06] MEDS: oxyCODONE/Acetamin 5/325 MG* TAB PO PRN ×2 (13:46→20:00)
--- NOTE | 2017-04-06 14:51 | PN ---
Subjective Date of Service: 04/06/17 Interval History: pt c/o occasional headache. Family History: Unchanged from Admission Social History: Unchanged from Admission Past Medical History: Unchanged from Admission Objective Active Medications: Acetaminophen (Tylenol Tab*) 650 mg PO Q6H PRN PRN Reason: pain/fever Last Admin: 04/04/17 19:40 Dose: 650 mg Docusate Sodium (Colace Cap*) 100 mg PO DAILY PRN PRN Reason: CONSTIPATION Last Admin: 04/06/17 08:32 Dose: 100 mg Labetalol HCl (Trandate Iv*) 10 mg IV PUSH Q2H PRN PRN Reason: sBP>150 mmHg Morphine Sulfate (Morphine Inj (Syringe)*) 4 mg IV Q4H PRN PRN Reason: PAIN Last Admin: 04/06/17 07:06 Dose: 4 mg Ondansetron HCl (Zofran Inj*) 4 mg IV Q4H PRN PRN Reason: NAUSEA/VOMITING Last Admin: 04/03/17 11:06 Dose: 4 mg Oxycodone/Acetaminophen (Percocet 5/325 Tab*) 1 tab PO Q4H PRN PRN Reason: PAIN Last Admin: 04/06/17 13:46 Dose: 1 tab Polyethylene Glycol/Electrolytes (Miralax*) 17 gm PO DAILY PRN PRN Reason: CONSTIPATION Last Admin: 04/06/17 08:32 Dose: 17 gm Senna (Senokot Tab*) 2 tab PO BEDTIME PRN PRN Reason: CONSTIPATION Last Admin: 04/05/17 19:57 Dose: 2 tab Vital Signs 04/05/17 04/05/17 04/05/17 15:32 15:41 15:50 Temperature 98.7 F Pulse Rate 84 Respiratory 18 18 Rate Blood Pressure 132/69 (mmHg) O2 Sat by Pulse 91 98 Oximetry 04/05/17 04/06/17 04/06/17 19:40 00:10 07:06 Temperature 97.3 F Pulse Rate 68 Respiratory 18 20 18 Rate Blood Pressure 126/66 (mmHg) O2 Sat by Pulse 95 Oximetry 04/06/17 04/06/17 04/06/17 07:21 08:00 08:06 Temperature 97.7 F Pulse Rate 64 Respiratory 16 18 18 Rate Blood Pressure 116/64 (mmHg) O2 Sat by Pulse 98 Oximetry 04/06/17 13:46 Temperature Pulse Rate Respiratory 18 Rate Blood Pressure (mmHg) O2 Sat by Pulse Oximetry Oxygen Devices in Use Now: None Appearance: 62 yo F in NAD, AAOx3, somewhat limited [place] language skills Eyes: No Scleral Icterus, PERRLA Ears/Nose/Mouth/Throat: NL Teeth, Lips, Gums, Mucous Membranes Moist Neck: NL Appearance and Movements; NL JVP, Trachea Midline Respiratory: Symmetrical Chest Expansion and Respiratory Effort, Clear to Auscultation Cardiovascular: NL Sounds; No Murmurs; No JVD, RRR Abdominal: NL Sounds; No Tenderness; No Distention Lymphatic: No Cervical Adenopathy Extremities: No Edema, No Clubbing, Cyanosis Skin: No Rash or Ulcers, No Nodules or Sclerosis Neurological: Alert and Oriented x 3, - - left hemineglect, mild flattening of left nasolabial fold, left UE -strenght minimally decreased c/w right Result Diagrams: 04/01/17 05:25 04/05/17 05:22 Additional Lab and Data: . Microbiology and Other Data: Microbiology 03/31/17 22:05 Nasal Screen MRSA (PCR)([facility]) - Final Nasal Mrsa Negative Diagnostic Imaging: CT head 03/31 - R posterior parietal/temporal hemorrhage with associated vasogenic edema and 3mm midline shift Ct head 04/01 - Essentially unchanged from initial scan with minimal midline shift CT head 04/03 - Stable, unchanged Assess/Plan/Problems-Billing Assessment: This is a 62 yo female with a h/o controlled HTN who presents with spontaneous ICH. - Patient Problems (1) Intracranial hemorrhage Comment: R posterior parietal/temporal lobe Appears spontaneous, nl CTA, no recent trauma ASA has been discontinued Minimal deficit without change in neuro exam Bleed appears stable on repeat imaging Appreciated neurosurgery involvement Continue PT/OT/speech eval, PMRU referral Plan for MRI early next week per neurosurgery recommendation (2) HTN (hypertension) Comment: BP controlled on no meds, cont to monitor goal for sBP <150 mmHg (3) Hyperglycemia Comment: mild on morning BMP's, will check Hba1C (4) DVT prophylaxis Comment: SCDs, anticoagulation contraindicated due to ICH Status and Disposition: Inpatient. PMRU referral/admission pending. Continue PT/OT/speech.
[2017-04-06] MEDS: Senna TAB PO PRN (19:59)
[2017-04-07] MEDS: oxyCODONE/Acetamin 5/325 MG* TAB PO PRN (04:46)
[2017-04-07] MEDS ORDERED: oxyCODONE TAB* 5 MG TAB ONE (08:20)
[2017-04-07] MEDS: Lisinopril TAB* 5 MG PO SCH (08:21)
[2017-04-07] MEDS: Polyethylene Glycol 3350* 17 GM PACKET PO PRN (08:22)
[2017-04-07] MEDS: oxyCODONE TAB* 5 MG TAB PO PRN ×3 (08:22→19:43)
[2017-04-07] MEDS: Docusate CAP* 100 MG PO PRN (08:22)
--- NOTE | 2017-04-07 14:29 | PN ---
Subjective Date of Service: 04/07/17 Interval History: pt still c/o headache and dizziness when ambulating Family History: Unchanged from Admission Social History: Unchanged from Admission Past Medical History: Unchanged from Admission Objective Active Medications: Acetaminophen (Tylenol Tab*) 650 mg PO Q6H PRN PRN Reason: pain/fever Last Admin: 04/04/17 19:40 Dose: 650 mg Docusate Sodium (Colace Cap*) 100 mg PO DAILY PRN PRN Reason: CONSTIPATION Last Admin: 04/07/17 08:22 Dose: 100 mg Lisinopril (Prinivil Tab*) 2.5 mg PO DAILY DELFINA Last Admin: 04/07/17 08:21 Dose: 2.5 mg Morphine Sulfate (Morphine Inj (Syringe)*) 4 mg IV Q4H PRN PRN Reason: PAIN Last Admin: 04/06/17 07:06 Dose: 4 mg Ondansetron HCl (Zofran Inj*) 4 mg IV Q4H PRN PRN Reason: NAUSEA/VOMITING Last Admin: 04/03/17 11:06 Dose: 4 mg Oxycodone HCl (Roxycodone Tab*) 10 mg PO Q4H PRN PRN Reason: HEADACHE Last Admin: 04/07/17 13:26 Dose: 10 mg Polyethylene Glycol/Electrolytes (Miralax*) 17 gm PO DAILY PRN PRN Reason: CONSTIPATION Last Admin: 04/07/17 08:22 Dose: 17 gm Senna (Senokot Tab*) 2 tab PO BEDTIME PRN PRN Reason: CONSTIPATION Last Admin: 04/06/17 19:59 Dose: 2 tab Vital Signs 04/06/17 04/06/17 04/06/17 15:14 15:46 20:00 Temperature 98.0 F Pulse Rate 69 Respiratory 16 18 16 Rate Blood Pressure 116/63 (mmHg) O2 Sat by Pulse 94 Oximetry 04/06/17 04/06/17 04/07/17 22:00 23:42 04:29 Temperature 97.7 F 98.6 F Pulse Rate 61 63 Respiratory 16 16 16 Rate Blood Pressure 121/67 131/65 (mmHg) O2 Sat by Pulse 98 98 Oximetry 04/07/17 04/07/17 04/07/17 04:46 06:46 07:31 Temperature 97.5 F Pulse Rate 63 Respiratory 16 18 18 Rate Blood Pressure 107/63 (mmHg) O2 Sat by Pulse 98 Oximetry 04/07/17 04/07/17 04/07/17 07:47 08:22 10:22 Temperature Pulse Rate Respiratory 16 18 16 Rate Blood Pressure (mmHg) O2 Sat by Pulse Oximetry 04/07/17 13:26 Temperature Pulse Rate Respiratory 16 Rate Blood Pressure (mmHg) O2 Sat by Pulse Oximetry Oxygen Devices in Use Now: None Appearance: 62 yo F in nAD, aAOx3 Eyes: No Scleral Icterus, PERRLA Ears/Nose/Mouth/Throat: NL Teeth, Lips, Gums, Mucous Membranes Moist Neck: NL Appearance and Movements; NL JVP, Trachea Midline Respiratory: Symmetrical Chest Expansion and Respiratory Effort, Clear to Auscultation Cardiovascular: NL Sounds; No Murmurs; No JVD, RRR Abdominal: NL Sounds; No Tenderness; No Distention Lymphatic: No Cervical Adenopathy Extremities: No Edema, No Clubbing, Cyanosis Skin: No Rash or Ulcers, No Nodules or Sclerosis Neurological: Alert and Oriented x 3, - - left hemineglect noted Result Diagrams: 04/01/17 05:25 04/05/17 05:22 Additional Lab and Data: . Microbiology and Other Data: Microbiology 03/31/17 22:05 Nasal Screen MRSA (PCR)(SJ) - Final Nasal Mrsa Negative Diagnostic Imaging: CT head 03/31 - R posterior parietal/temporal hemorrhage with associated vasogenic edema and 3mm midline shift Ct head 04/01 - Essentially unchanged from initial scan with minimal midline shift CT head 04/03 - Stable, unchanged Assess/Plan/Problems-Billing Assessment: This is a 62 yo female with a h/o controlled HTN who presents with spontaneous ICH. - Patient Problems (1) Intracranial hemorrhage Comment: R posterior parietal/temporal lobe Appears spontaneous, nl CTA, no recent trauma ASA has been discontinued left hemineglect, headache and dissiness when ambulating continue. Bleed appears stable on repeat imaging Appreciated neurosurgery involvement Continue PT/OT/speech eval, PMRU referral D/w Dr. Herrera, will order MRI W/WO in AM. (2) HTN (hypertension) Comment: will restart Lisinopril (3) Hyperglycemia Comment: mild on morning BMP's, Hba1C 5.9 (4) DVT prophylaxis Comment: SCDs, anticoagulation contraindicated due to ICH (5) Dizziness Comment: may be a symptoms of ICH, but will check orthostatic BP Status and Disposition: Inpatient. PMRU referral/admission pending. Continue PT/OT/speech.
[2017-04-07] MEDS: Acetaminophen TAB* 325 MG PO PRN (16:12)
[2017-04-07] MEDS: Ondansetron INJ* 2 MG/ML VIAL IV PRN (16:13)
[2017-04-07] MEDS: Senna TAB PO PRN (19:42)
[2017-04-08] MEDS: Polyethylene Glycol 3350* 17 GM PACKET PO PRN (08:00)
[2017-04-08] MEDS: Lisinopril TAB* 5 MG PO SCH ×2 (08:00→08:33)
[2017-04-08] MEDS: Docusate CAP* 100 MG PO PRN (08:00)
[2017-04-08] MEDS ORDERED: Gadoteridol* (CONTRAST) 279.3 MG/ML 10 ML IV ONE (10:33)
--- NOTE | 2017-04-08 10:52 | RAD ---
HISTORY: Recent intracranial hemorrhage COMPARISONS: April 03, [address] TECHNIQUE: The following sequences were obtained of the head: Sagittal T1-weighted images, axial T2-weighted images, axial FLAIR images, axial susceptibility weighted images, axial T1-weighted images. Additionally, axial diffusion-weighted images were obtained with calculated apparent diffusion coefficients. Additionally, sagittal, coronal, and axial T1-weighted images were obtained after contrast enhancement with a gadolinium-based intravenous contrast agent. FINDINGS: HEMORRHAGE/INFARCT: Again noted is a parenchymal hemorrhage of the right cerebral hemisphere centered within the right posterior temporal lobe with extension to the hospital and parietal lobes. There is associated vasogenic edema. Elsewhere, there is no hemorrhage or infarct. MASSES/SHIFT: There is approximately 0.3 cm and subfalcine shift of the left, with partial effacement of the basal cisterns on the right. EXTRA-AXIAL SPACES/MENINGES: There are no extra-axial fluid collections. SULCI AND VENTRICLES: There is mass effect upon the right lateral ventricle. There is sulcal effacement of the right cerebral hemisphere CEREBRUM: As noted above, there is right temporal hematoma. On the current examination, this measures approximately 4.6 x 3.5 x 3.1 cm in size. There is associated vasogenic edema. Along the posterior margin of the hematoma, there is mild prominence of the cerebral vasculature. BRAINSTEM: There are no focal parenchymal abnormalities. CEREBELLUM: There are no focal parenchymal abnormalities. The cerebellar tonsils are normal in size and position. SELLA: The sella is normal. PINEAL: The pineal region is clear. CP ANGLE/TEMPORAL BONES: The labyrinthine structures are grossly normal. VESSELS: Normal flow-voids are noted within the visualized vertebral vasculature. DIFFUSION ABNORMALITIES: There are no diffusion abnormalities. PARANASAL SINUSES/MASTOIDS: There are-fluid levels within the maxillary sinuses bilaterally There are large bilateral mastoid effusions. ORBITS: The orbits are unremarkable. BONES AND SOFT TISSUE: No bone or soft tissue abnormalities are noted. OTHER: None IMPRESSION: 1. AGAIN NOTED IS A RIGHT CEREBRAL INTRAPARENCHYMAL HEMORRHAGE. THERE IS ASSOCIATED VASOGENIC EDEMA WITH MINIMAL SUBFALCINE SHIFT TO THE LEFT AND PARTIAL EFFACEMENT OF THE BASAL CISTERNS ON THE RIGHT. 2. WHILE THERE IS NO ASSOCIATED ABNORMAL ENHANCEMENT, THE HEMATOMA MAY OBSCURE THE PRESENCE OF A SMALL TUMOR. 3. ADDITIONALLY, THERE IS PROMINENCE OF THE VASCULATURE ALONG THE POSTERIOR MARGIN OF THE HEMATOMA WHICH MAY INDICATE THE PRESENCE OF AN UNDERLYING VASCULAR MALFORMATION. RECENT CT ANGIOGRAPHY DOES NOT CLEARLY REVEAL AN UNDERLYING VASCULAR REFORMATIONS; HOWEVER, THIS MAY BE COMPRESSED BY THE PRESENCE OF THE HEMATOMA. RECOMMEND REPEAT EVALUATION AFTER RESOLUTION OF THE HEMATOMA. 4. MODERATE SINUS MUCOSAL INFLAMMATORY DISEASE, WITH AIR-FLUID LEVELS IN THE MAXILLARY SINUSES BILATERALLY. IN THE CORRECT CLINICAL SETTING, THIS MAY REPRESENT ACUTE SINUSITIS. LARGE BILATERAL MASTOID EFFUSIONS
--- NOTE | 2017-04-08 12:09 | PN ---
Subjective Date of Service: 04/08/17 Interval History: pt still c/o VARGAS and dizziness. No significant orthostatic changes noted today Family History: Unchanged from Admission Social History: Unchanged from Admission Past Medical History: Unchanged from Admission Objective Active Medications: Acetaminophen (Tylenol Tab*) 650 mg PO Q6H PRN PRN Reason: pain/fever Last Admin: 04/07/17 16:12 Dose: 650 mg Docusate Sodium (Colace Cap*) 100 mg PO DAILY PRN PRN Reason: CONSTIPATION Last Admin: 04/08/17 08:00 Dose: 100 mg Lisinopril (Prinivil Tab*) 2.5 mg PO DAILY DELFINA Last Admin: 04/08/17 08:33 Dose: Not Given Morphine Sulfate (Morphine Inj (Syringe)*) 4 mg IV Q4H PRN PRN Reason: PAIN Last Admin: 04/06/17 07:06 Dose: 4 mg Ondansetron HCl (Zofran Inj*) 4 mg IV Q4H PRN PRN Reason: NAUSEA/VOMITING Last Admin: 04/07/17 16:13 Dose: 4 mg Oxycodone HCl (Roxycodone Tab*) 10 mg PO Q4H PRN PRN Reason: HEADACHE Last Admin: 04/07/17 19:43 Dose: 10 mg Polyethylene Glycol/Electrolytes (Miralax*) 17 gm PO DAILY PRN PRN Reason: CONSTIPATION Last Admin: 04/08/17 08:00 Dose: 17 gm Senna (Senokot Tab*) 2 tab PO BEDTIME PRN PRN Reason: CONSTIPATION Last Admin: 04/07/17 19:42 Dose: 2 tab Vital Signs 04/07/17 04/07/17 04/07/17 13:26 15:26 15:56 Temperature 97.4 F Pulse Rate 73 Respiratory 16 16 16 Rate Blood Pressure 119/64 (mmHg) O2 Sat by Pulse 92 Oximetry 04/07/17 04/07/17 04/07/17 19:43 19:47 19:49 Temperature Pulse Rate 64 Respiratory 16 16 16 Rate Blood Pressure 112/60 (mmHg) O2 Sat by Pulse Oximetry 04/07/17 04/08/17 04/08/17 21:43 00:14 07:33 Temperature 97.5 F 98.6 F Pulse Rate 57 80 Respiratory 16 20 18 Rate Blood Pressure 117/63 94/54 (mmHg) O2 Sat by Pulse 96 93 Oximetry 04/08/17 04/08/17 08:00 09:47 Temperature Pulse Rate 88 Respiratory 16 Rate Blood Pressure 111/64 (mmHg) O2 Sat by Pulse Oximetry Oxygen Devices in Use Now: None Appearance: 62 yo F in nAD, aAOx3 Eyes: No Scleral Icterus, PERRLA Ears/Nose/Mouth/Throat: NL Teeth, Lips, Gums, Mucous Membranes Moist Neck: NL Appearance and Movements; NL JVP, Trachea Midline Respiratory: Symmetrical Chest Expansion and Respiratory Effort, Clear to Auscultation Cardiovascular: NL Sounds; No Murmurs; No JVD, RRR Abdominal: NL Sounds; No Tenderness; No Distention Lymphatic: No Cervical Adenopathy Extremities: No Edema, No Clubbing, Cyanosis Skin: No Rash or Ulcers, No Nodules or Sclerosis Neurological: Alert and Oriented x 3, - - left hemineglect noted Result Diagrams: 04/01/17 05:25 04/05/17 05:22 Additional Lab and Data: . Microbiology and Other Data: Microbiology 03/31/17 22:05 Nasal Screen MRSA (PCR)([facility]) - Final Nasal Mrsa Negative Diagnostic Imaging: CT head 03/31 - R posterior parietal/temporal hemorrhage with associated vasogenic edema and 3mm midline shift Ct head 04/01 - Essentially unchanged from initial scan with minimal midline shift CT head 04/03 - Stable, unchanged Assess/Plan/Problems-Billing Assessment: This is a 62 yo female with a h/o controlled HTN who presents with spontaneous ICH. - Patient Problems (1) Intracranial hemorrhage Comment: R posterior parietal/temporal lobe Appears spontaneous, nl CTA, no recent trauma ASA has been discontinued left hemineglect, headache and dizziness when ambulating continue. Bleed appears stable on repeat imaging Appreciated neurosurgery involvement Continue PT/OT/speech eval, PMRU referral MRI W/WO on 04/08/17 shows no underlying mass, but repeat CTA recommended to r/ o AV malformation once hematoma resolved (2) HTN (hypertension) Comment: cont Lisinopril (3) Hyperglycemia Comment: mild on morning BMP's, Hba1C 5.9 (4) DVT prophylaxis Comment: SCDs, anticoagulation contraindicated due to ICH (5) Dizziness Comment: Not orthostatic . suspect related to ICH, but MRI also positive of maxillary sinusitis. will start Keflex Status and Disposition: Inpatient. PMRU referral/admission pending. Continue PT/OT/speech.
[2017-04-08] MEDS: Cephalexin CAP* 500 MG PO SCH ×3 (14:16→20:48)
[2017-04-09] MEDS: Acetaminophen TAB* 325 MG PO PRN (07:53)
[2017-04-09] MEDS: Lisinopril TAB* 5 MG PO SCH (07:53)
[2017-04-09] MEDS: Cephalexin CAP* 500 MG PO SCH ×2 (07:53→12:57)
--- NOTE | 2017-04-09 09:56 | PN ---
Subjective Date of Service: 04/09/17 Interval History: Patient seen this morning. Asleep initially, tired from walking around the hallway this morning. VARGAS this AM that is responding to tylenol. Denies SOB. Eating well, moving bowels. Family History: Unchanged from Admission Social History: Unchanged from Admission Past Medical History: Unchanged from Admission Objective Active Medications: Acetaminophen (Tylenol Tab*) 650 mg PO Q6H PRN Cephalexin HCl (Keflex Cap*) 500 mg PO QID DELFINA Docusate Sodium (Colace Cap*) 100 mg PO DAILY PRN Lisinopril (Prinivil Tab*) 2.5 mg PO DAILY DELFINA Morphine Sulfate (Morphine Inj (Syringe)*) 4 mg IV Q4H PRN Ondansetron HCl (Zofran Inj*) 4 mg IV Q4H PRN Oxycodone HCl (Roxycodone Tab*) 10 mg PO Q4H PRN Polyethylene Glycol/Electrolytes (Miralax*) 17 gm PO DAILY PRN Senna (Senokot Tab*) 2 tab PO BEDTIME PRN Vital Signs 04/08/17 04/08/17 04/08/17 11:11 15:38 19:23 Temperature 98.4 F 98.7 F 97.6 F Pulse Rate 67 74 71 Respiratory 18 16 16 Rate Blood Pressure 102/59 115/57 121/67 (mmHg) O2 Sat by Pulse 100 98 96 Oximetry 04/08/17 04/09/17 04/09/17 20:00 00:18 07:39 Temperature 98.3 F 97.8 F Pulse Rate 70 74 Respiratory 18 20 20 Rate Blood Pressure 112/56 115/64 (mmHg) O2 Sat by Pulse 99 97 Oximetry 04/09/17 07:46 Temperature Pulse Rate Respiratory 20 Rate Blood Pressure (mmHg) O2 Sat by Pulse Oximetry Oxygen Devices in Use Now: None Appearance: Middle-aged, F, laying in bed in NAD Eyes: No Scleral Icterus Ears/Nose/Mouth/Throat: Mucous Membranes Moist Neck: NL Appearance and Movements; NL JVP Respiratory: Symmetrical Chest Expansion and Respiratory Effort, Clear to Auscultation Cardiovascular: NL Sounds; No Murmurs; No JVD, RRR Abdominal: NL Sounds; No Tenderness; No Distention Lymphatic: No Cervical Adenopathy Extremities: No Edema Skin: No Rash or Ulcers Neurological: Alert and Oriented x 3, - - L hemineglect Result Diagrams: 04/01/17 05:25 04/05/17 05:22 Diagnostic Imaging: CT head 03/31 - R posterior parietal/temporal hemorrhage with associated vasogenic edema and 3mm midline shift Ct head 04/01 - Essentially unchanged from initial scan with minimal midline shift CT head 04/03 - Stable, unchanged Assess/Plan/Problems-Billing Assessment: This is a 62 yo female with a h/o controlled HTN who presents with spontaneous ICH. - Patient Problems (1) Intracranial hemorrhage Current Visit: Yes Comment: R posterior parietal/temporal lobe Appears spontaneous, nl CTA, no recent trauma ASA has been discontinued left hemineglect, headache and dizziness when ambulating continue. Bleed appears stable on repeat imaging Appreciated neurosurgery involvement Continue PT/OT/speech eval, PMRU referral MRI W/WO on 04/08/17 shows no underlying mass, but repeat CTA recommended to r/ o AV malformation once hematoma resolved (2) HTN (hypertension) Current Visit: Yes Comment: cont Lisinopril (3) Dizziness Current Visit: Yes Comment: Not orthostatic . suspect related to ICH, but MRI also positive of maxillary sinusitis. Continue Keflex. (4) Hyperglycemia Current Visit: Yes Comment: mild on morning BMP's, Hba1C 5.9 (5) DVT prophylaxis Current Visit: Yes Comment: SCDs, anticoagulation contraindicated due to ICH (6) Full code status Current Visit: Yes Status and Disposition: Inpatient. PMRU referral/admission pending. Continue PT/OT/speech.
[2017-04-09 11:27] VITALS: BP 122/77
--- NOTE | 2017-04-10 01:31 | DS ---
DISCHARGE SUMMARY: DATE OF ADMISSION: 03/31/17 DATE OF DISCHARGE: 04/09/17 PRIMARY CARE PHYSICIAN: Ridge Mack MD TECHNICAL SYSTEMS ARCHITECT DURING THIS HOSPITALIZATION: Santhosh Herrera MD, neurosurgery. PRIMARY DISCHARGE DIAGNOSIS: Intracranial hemorrhage. SECONDARY DIAGNOSIS: Hypertension. DISCHARGE MEDICATION REGIMEN: 1. Vitamin D 1000 units by mouth daily. 2. Tylenol 650 mg by mouth every 6 hours as needed for pain. 3. Lisinopril 2.5 mg by mouth daily. 4. Oxycodone 10 mg by mouth every 4 hours as needed for pain. 5. Senna 2 tablets by mouth at bedtime as needed for constipation. 6. Colace 100 mg by mouth daily as needed for constipation. 7. MiraLax 17 g by mouth daily as needed for constipation. STUDIES DONE DURING HOSPITALIZATION: Chest x-ray. Impression: No radiographic evidence for acute cardiopulmonary abnormality on this portable chest x-ray. CTA of the head and neck. Impression: Normal CTA of the head and neck, intraparenchymal bleed involving the right parietal and temporal lobes. CT of the brain without contrast, 03/31/17. Impression: CT findings compatible with intraparenchymal bleed involving the right posterior parietal and temporal lobes with a small degree 3-mm shift, right to left midline shift. CT brain 04/01/17. Impression: Stable right cerebral hematoma with minimal subxiphoid shift to the left. CT of the brain without contrast 04/03/17. Impression: Stable right temporoparietal intraparenchymal hematoma with minimal subfalcine shift to the left. MRI of the brain with and without contrast. Impression: Again noted is a right cerebral intraparenchymal hemorrhage. There is associated vasogenic edema with minimal subfalcine shift to the left and parietal effacement of the basal cisterns on the right. There is no associated abnormal enhancement, the hematoma may have obscured the presence of a small tumor. Additionally, there is prominence of the vasculature along the posterior margin of the hematoma, which may indicate the presence of an underlying vascular malformation. Recent CTA does not clearly reveal an underlying vascular malformation; however, this maybe compressed by the presence of the hematoma. Recommend a repeat evaluation after resolution of the hematoma. Moderate sinus mucosal inflammatory disease with air fluid levels in the maxillary sinuses bilaterally , in the current clinical setting, this may represent acute sinusitis. Large bilateral mastoid effusions. HISTORY OF PRESENT ILLNESS AND HOSPITAL SUMMARY: Please see the full history and physical by CHILO Hinojosa, for full details. Briefly, Ms. Harden is a 62- year-old female with a past medical history of hypertension who presented to the hospital with headaches, weakness, and dizziness. As noted above, CT scan showed presence of an intraparenchymal hemorrhage. Dr. Herrera was notified who recommended ICU admission and frequent neuro checks. The patient was seen the following morning. Decision was made to start on a mannitol infusion to try to reduce the edema. Over the following days, the patient became more alert. Serial scans were done, which showed stable hemorrhage. Mannitol drip was eventually stopped on 04/03/17. The patient continued to complain of headaches and neuro exam was significant for some left hemineglect. She was evaluated by physical therapy who felt she would benefit from stay in the inpatient rehab. She was transferred to [facility] on 04/09/17 for further therapy. TIME SPENT: Total time spent on this discharge 40 minutes. This is a summary of the hospitalization. Please see the full medical record for further details. CC: Dr. Mack* [id number]/[facility] #: [id number] MTDClaudio
== END 2017-04-09 13:21 | DRG 64 ==
LOC: ED 14:44 → ICU 18:10 → MEDTELE 04-03 12:11
PROVIDERS: ADMIT Internal Medicine; ATTEND Hospitalist
PROC: 0T9B70Z Drainage of Bladder with Drainage Device, Via Natural or Artificial Opening (ICD-10-PCS; principal; 2017-04-02)
DX: I61.1 Nontraumatic intracerebral hemorrhage in hemisphere, cortical (principal); G93.6 Cerebral edema; R41.4 Neurologic neglect syndrome; I10 Essential (primary) hypertension; R40.2412 Glasgow coma scale score 13-15, at arrival to emergency department; R29.700 NIHSS score 0; R51 Headache; T47.3X5A Adverse effect of saline and osmotic laxatives, initial encounter; R42 Dizziness and giddiness; R73.9 Hyperglycemia, unspecified; J01.00 Acute maxillary sinusitis, unspecified; Z88.6 Allergy status to analgesic agent; Z90.710 Acquired absence of both cervix and uterus
CPT/HCPCS: 36415; 70450; 70496; 70498; 70553; 71010; 80048; 80053; 83036; 83605; 84484; 85025; 85610; 85730; 87040; 87641; 93005; 94760; 99213; A9270-GY; A9579; G0463; J2270; J2405; Q9967

== ENCOUNTER 2017-04-09 12:30 | Inpatient (IN) | payer OTHER ==
[2017-04-09] MEDS ORDERED: Senna TAB PO PRN (17:04)
[2017-04-09] MEDS ORDERED: Magnesium Hydroxide LIQ* 30 ML UDC PO PRN (17:04)
[2017-04-09] MEDS ORDERED: Ondansetron ODT TAB* 4 MG PO PRN (17:17)
[2017-04-09] MEDS: Cephalexin CAP* 500 MG PO SCH (18:25)
[2017-04-09] MEDS: Docusate CAP* 100 MG PO SCH (21:14)
--- NOTE | 2017-04-09 23:18 | HP ---
ADMISSION HISTORY AND PHYSICAL: DATE OF ADMISSION: 04/09/17 REASON FOR ADMISSION: Intracerebral hemorrhage. HISTORY OF PRESENT ILLNESS: Jessie Harden is a 62-year-old Malay female. She has a history of hypertension. She came to the emergency room at [facility] acutely on March 31. She had a severe headache. The headache actually started on March 30. She had some generalized weakness and dizziness associated with the headache. There was no history of recent trauma and no history of falls. A CAT scan of the brain was done in the emergency room showing an intracranial hemorrhage at the right parietal and temporal lobes. She was admitted to the intensive care unit for workup. The patient had a followup CAT scan on April 01 as well as one on April 03. The patient was put on mannitol in the intensive care unit to minimize brain edema. She also had a CT angiogram done on March 31 on the day of admission showing normal CT angiography of the head and neck. She did have a persistent, but improving headache. Neurosurgery saw the patient and did not feel any surgery was necessary. Her headache was treated with analgesics. She did have an MRI of the brain on April 08. The MRI showed intraparenchymal hemorrhage with associated edema. There was no associated abnormal enhancement; however, the hematoma was felt to be able to obscure the presence of a small tumor. It was felt that she would need repeat evaluation after resolution of the hematoma. She was also noted to have inflammation of her sinuses and was started on Keflex for this. The patient was noted to have difficulty with ambulation as well as with transfers and self care. She was felt to have PT, OT, and speech therapy needs. She is now being admitted for inpatient rehab so that she might return to independent living. PAST MEDICAL HISTORY: Significant for hypertension. CURRENT MEDICATIONS: Include: 1. Lisinopril. 2. Keflex. 3. Bowel medications. She was on aspirin prior to admission. ALLERGIES: The patient has allergies listed to NAPROSYN. SOCIAL HISTORY: She is a nonsmoker and nondrinker. She is . She has 2 children, who lives with her. She lives in a 2-story house with 5 steps to enter. Her bedroom is on the first floor. REVIEW OF SYSTEMS: No current shortness of breath or chest pain. PHYSICAL EXAMINATION VITAL SIGNS: The patient's temperature is 97.8, blood pressure is 130/74, pulse 71, respirations 20. HEENT: Her extraocular movements appear to be intact. She has a right gaze preference. NECK: Supple. LUNGS: Sounds clear to auscultation bilaterally. HEART: Regular. S1 and S2 were audible. ABDOMEN: Soft and nontender. EXTREMITIES: Showed normal muscle bulk and tone. Peripheral pulses were intact. NEUROLOGIC: The patient was awake and alert. Her Armenian was somewhat limited. As mentioned, she had a right gaze preference. She also appeared to have a left visual field cut. Her muscle strength was about 4/5 on the left and 5/5 on the right. FUNCTIONAL EXAM: The patient transferred with supervision to minimal amount of assistance. ASSESSMENT: Intracerebral hemorrhage with left-sided neglect. PLAN: We are going to integrate her into a comprehensive and therapeutic rehab program with the following goals: 1. Physical Therapy work with the patient. They are going to work on functional transfer training and ambulation training, work on her balance difficulties. 2. Occupational Therapy will see the patient, work on her activities of daily living including toileting and toilet transfers. 3. Speech Therapy will see the patient, work on her neglect issues. 4. Dez stockings for DVT prophylaxis. Anticoagulation is contraindicated given her recent hemorrhage. 5. Monitor closely for any seizures. She is not currently on any seizure prophylaxis. 6. Blood pressure control with lisinopril. 7. Adequate analgesia for her headaches. 8. Her bowels will be regulated. 9. special services director will be closely involved to make sure that any services and equipment that the patient requires are in place prior to discharge. 10. Family training as appropriate. 11. Advanced Directives: The Patient is a full code. Her son is her surrogate decision maker 12. Home with appropriate services. ESTIMATED LENGTH OF STAY: 10 to 12 days. [id number]/[facility] #: [id number] MTDD
[2017-04-10] MEDS: Cephalexin CAP* 500 MG PO SCH ×3 (01:55→21:09)
[2017-04-10] MEDS: Acetaminop/Codeine 30 MG TAB* 1 TAB (300 MG/30 MG) PO PRN (08:37)
[2017-04-10] MEDS: Docusate CAP* 100 MG PO SCH ×2 (08:37→21:09)
[2017-04-10] MEDS: Lisinopril TAB* 5 MG PO SCH (08:38)
[2017-04-10] MEDS: Acetaminophen TAB* 325 MG PO PRN (21:08)
[2017-04-11] MEDS: Cephalexin CAP* 500 MG PO SCH ×3 (06:17→22:33)
[2017-04-11] MEDS: Acetaminophen TAB* 325 MG PO PRN (06:32)
[2017-04-11 08:20] LABS: Hematocrit 40 % (35-47); Hemoglobin 13.2 g/dl (12.0-16.0); Mean Corpuscular HGB Conc 33 g/dl (31-36); Mean Corpuscular Hemoglobin 30 pg (27-31); Mean Corpuscular Volume 91 fL (80-97); Mean Platelet Volume 8 um3 (7.4-10.4); Red Blood Count 4.35 10^6/ul (4.0-5.4); Red Cell Distribution Width 13 % (10.5-15); White Blood Count 8.7 10^3/ul (3.5-10.8)
[2017-04-11 08:38] LABS: BUN/Creatinine Ratio 21.1 (8-20); EGFR Non-African American 107.1 (>60); Potassium 3.7 mmol/L (3.5-5.0)
[2017-04-11 08:39] LABS: Albumin 3.7 g/dL (3.2-5.2); EGFR African American 137.8 (>60); Globulin 3.5 g/dL (2-4); Total Bilirubin 0.5 mg/dL (0.2-1.0); Total Protein 7.2 g/dL (6.4-8.9)
[2017-04-11] MEDS: Docusate CAP* 100 MG PO SCH ×2 (09:19→22:33)
[2017-04-11] MEDS: Lisinopril TAB* 5 MG PO SCH (09:19)
--- NOTE | 2017-04-11 12:41 | PMRUTEAM ---
PMRU: Goals Current Status: Nursing: Current Status Skin Deviation Description [ none none] Physical Therapy: Current Status Bed Mobility Assistance Independent Transfer Moblility Assistance CGA Transfer/Bed Mobility Rolling Walker Recommended Devices Ambulation Assistance CGA Ambulation Assistive Devices Rolling Walker Stairs Assistance CGA Stairs Recommended Devices One Rail Number of Stairs 6 Occupational Therapy: Current Status Upper Body Dressing Supervision Lower Body Dressing Supervision Bathing Supervision Toileting Supervision Toilet Transfer Supervision Shower Transfer Contact Guard Assist Eating Independent Rec Therapy: Current Status Summary of Assessment and Pt. was in her room with her family. Pt. speaks Clinical Impression little Bengali but was able to answer some questions. Pt.'s son provided additional information during the conversation. Pt.'s family expressed concerns that she may not follow unit guidelines. Pt.'s family described her as " stubborn". Treatment Goals Pt. will engage in leisure activities while on the unit. Treatment Plan Provide RT services and encourage involvement. Social Work: Current Status Discharge Plan return home with home care svs and family support Potential for Family Training pt's is attentive and involved Anticipated Discharge Home Destination Discharge With family support and community services as needed Speech: Current Status Assessment The patient presented with improvements with left visual attention for functional reading and writing tasks, however the patient presented with continued left visual attention deficits, especially if information was presented from the left side. The patient would benefit from continued skilled HOME THERAPY TEACHER services to improve cognitive-linguistic skills, focusing on left visual attention for functional reading and writing, and receptive language for single step commands at complex/ abstract yes/no questions for improved safety, function and independence for daily living tasks. Goals: Physical Therapy: Initial Goals Bed Mobility Assistance Independent Transfer Mobility Assistance Independent Transfer/Bed Mobility Rolling Walker Recommended Devices Ambulation Independent Ambulation Recommended Devices Rolling Walker Ambulation Distance 150 Stairs Assistance Independent Stair Recommended Devices One Rail Number of Stairs 20 Occupational Therapy: Initial Goals Goals to be Completed in (Days 4-6 ) Upper Body Bathing Routine Supervision/Set Up Upper Body Bathing Assistive Supervision for safety purposes Devices Lower Body Bathing Routine Supervision/Set Up Lower Body Bathing Assistive Supervision for safety purposes Devices Comment Upper Body Dressing Routine Independent Lower Body Dressing Routine Independent Toilet Hygeine and Clothing Modified Independent with Management Routine Toilet Transfer Routine Modified Independent with Tub Transfer Routine Supervision/Set Up Tub Trasnfer Assistive Devices Supervision for safety purposes Functional Transfers for ADL Modified Independent with Grooming Routine Modified Independent with Feeding Routine Independent Light Housekeeping Tasks Modified Independent with Speech: Goals Speech Goal 1 Receptive Language Goal 1 Comments LTG: The patient will improve receptive language skills with use of compensatory strategies as needed to comprend information for daily living tasks. STGs: 1. The patient will follow functional single step commands at 90% accuracy. 2. The patient will respond to complex/abstract yes/no questions at 90% accuracy. Speech Goal 2 Cognitive-linguistic Speech Goal 2 Comments LTG: The patient will improve cognitive- linguistic skills for improved safety, funciton and independence for daily living tasks with use of compensatory strategies as needed. STGs: 1. The patient will complete functional left visual attention scanning tasks at 95% accuracy. Status: The patient scanned page for words independently at 80% accuracy after discussion at start of session to scan left to right, improving to 100% given mod cues. The patient read 2 sentence paragraphs with large print presented at midline at 90% accuracy improving to 100% accuracy with min-mod cues. The patient was unable to read items presented on left side requiring mod-max cues. The patient wrote words on a page alternating left and right side given an initial letter with min-mod cues to alernate letters from left to right and to write word next to corresponding letter on left. 2. The patient will complete ongoing assessment for problem solving, sequencing, finances, time management and update POC as needed. Social Work: Goals Discharge Plan return home with home care svs and family support Potential for Family Training pt's is attentive and involved Anticipated Discharge Home Destination Discharge With family support and community services as needed Care Plan: Care Plan ADL's - Improve/Maintain Start: 04/10/17 14:36 Freq: DAILY Status: Active Target: Activity Type Activity Date Activity User E-Sign Co-Sign Detail Recorded Client Recorded Date Recorded By Document 04/11/17 10:45 [id number] 04/11/17 10:46 [id number] 04/11/17 10:45 PMRU Outcome: ADL's/ADL Transfers Orders/Interventions Occupational Therapy Evaluation & Treatment Communication Tool in Patient Room Device Yes: walker, w/ c Patient to receive OT 5x/wk for 60-120 Therex min/day Self Care Management Group Therapy Neuromuscular ReEducation UE/LE ADL's with Assist Yes ADL Transfers with Assist Yes Toileting: Transfers,Clothing Management Yes ,Hygeine w/Assist Light Kitchen/Laundry w/Assist Yes Progression Toward Outcome/Goals Progressing Outcome/Goals Met Pt progressing towards goals. Pt demosntrated ability to don /doff UE/LE dressing items with Supervision. Communication-Improve/Maintain Start: 04/09/17 16:47 Freq: DAILY Status: Active Target: Activity Type Activity Date Activity User E-Sign Co-Sign Detail Recorded Client Recorded Date Recorded By Document 04/11/17 02:10 [id number] 04/11/17 02:11 [id number] 04/11/17 02:10 PMRU Outcome: Communication/Cognitive Status Other Outcomes/Goals The patient will improve cognitive- linguistic skills with use of strategies for improved safety, function and independence for daily living tasks. Mobility- Improve/Maintain Start: 04/11/17 12:26 Freq: DAILY Status: Active Target: Activity Type Activity Date Activity User E-Sign Co-Sign Detail Recorded Client Recorded Date Recorded By Document 04/10/17 13:45 [id number] 04/11/17 12:28 [id number] 04/10/17 13:45 PMRU Outcome: Mobility Physical Therapy Evaluation and Yes Treatment Activity OOB with Assistance Yes Device Yes Assistance Yes Patient to be seen 5x/wk for 60-120 min/ Therex day for: Mobility Training Gait Training W/C Mobility Outcome/Goals Maintain/ Achieve Baseline Mobility Status Improve Mobility Status Demonstrates Proper Use of Assistive Devices Free from Complications of Immobility Bed Mobility Yes: independent Transfers Yes: independent with RW Gait x ft Yes: independent with RW W/C Mobility x ft Yes: independetn 150 ' RW Up/Down Stairs Yes: independetn up/ down 20 stairs with 1 rail Medicine Note: Length of Stay: [5 days] Anticipated Discharge Destination: Home Tentative Discharge Date: [04/16/17] Discharged to: [home]
[2017-04-12] MEDS: Acetaminophen TAB* 325 MG PO PRN ×2 (06:46→20:28)
[2017-04-12] MEDS: Cephalexin CAP* 500 MG PO SCH ×3 (06:46→21:47)
[2017-04-12] MEDS: Docusate CAP* 100 MG PO SCH ×3 (08:34→21:16)
[2017-04-12] MEDS: Lisinopril TAB* 5 MG PO SCH (08:35)
[2017-04-12] MEDS: Acetaminop/Codeine 30 MG TAB* 1 TAB (300 MG/30 MG) PO PRN (12:09)
[2017-04-13] MEDS: Cephalexin CAP* 500 MG PO SCH ×3 (05:22→21:19)
[2017-04-13] MEDS: Acetaminop/Codeine 30 MG TAB* 1 TAB (300 MG/30 MG) PO PRN (05:25)
[2017-04-13] MEDS: Lisinopril TAB* 5 MG PO SCH (08:01)
[2017-04-13] MEDS: Docusate CAP* 100 MG PO SCH ×2 (08:02→21:22)
[2017-04-13] MEDS: Acetaminophen TAB* 325 MG PO PRN (12:30)
[2017-04-14] MEDS: Cephalexin CAP* 500 MG PO SCH ×3 (06:01→21:59)
[2017-04-14] MEDS: Lisinopril TAB* 5 MG PO SCH (08:04)
[2017-04-14] MEDS: Docusate CAP* 100 MG PO SCH ×3 (08:04→22:00)
[2017-04-14] MEDS: Acetaminophen TAB* 325 MG PO PRN ×2 (08:04→14:59)
[2017-04-15] MEDS: Cephalexin CAP* 500 MG PO SCH ×3 (05:52→21:15)
[2017-04-15] MEDS: Lisinopril TAB* 5 MG PO SCH (08:18)
[2017-04-15] MEDS: Docusate CAP* 100 MG PO SCH ×2 (08:19→21:06)
--- NOTE | 2017-04-15 12:29 | PMRUTEAM ---
PMRU: Goals Current Status: Nursing: Current Status Skin Deviations [none] Other Skin Deviation Description [ none none] Physical Therapy: Current Status Bed Mobility Assistance Supervision Transfer Moblility Assistance Supervision,Contact Guard Assist Transfer/Bed Mobility None,Rolling Walker Recommended Devices Ambulation Assistance Supervision,Contact Guard Assist Ambulation Assistive Devices None,Rolling Walker Number of Feet Patient 300' x 2 Ambulated Stairs Assistance Contact Guard Assist Stairs Recommended Devices Two Rails Number of Stairs 10 Curb Not Tested Occupational Therapy: Current Status Upper Body Dressing Supervision Lower Body Dressing Supervision Bathing Supervision Toileting Supervision Toilet Transfer Supervision Shower Transfer Supervision Eating Independent Rec Therapy: Current Status Summary of Assessment and Attempted to meet with patient to follow up. Clinical Impression Patient had visitors at the time - will attempt to meet with patient tomorrow. Treatment Goals Patient will engage in leisure activities while on the unit. Treatment Plan Provide and encourage involvement in RT services. Social Work: Current Status Discharge Plan return home with family support and community services as needed Potential for Family Training pt's family is involved and supportive Anticipated Discharge Home Destination Discharge With family support and support services as needed Nutrition: Current Status Monitoring Pt admitted to [facility] 04/09 s/p intracerebral hemorrhage. Pt overall eating fair-40%-100% meals noted over the past 3 days. No difficulties chewing/swallowing noted. Last bowel movement 04/14. Pt without any skin issues noted. Labs 04/11- glucose 151. Hemoglobin A1C (04/06) 5.9% (indicates pre-diabetes). Pt noted to have a language barrier however family can speak British. Pt with possible d/c date of 04/16 per notes. Speech: Current Status Assessment The patient presented with improvements with left visual attention for functional reading and writing tasks, however the patient presented with continued left visual attention deficits, especially when information was presented from the left side. The patient would benefit from continued skilled PLASTIC SEWER services to improve cognitive-linguistic skills, focusing on left visual attention for functional reading and writing, and receptive language for single step commands at complex/ abstract yes/no questions for improved safety, function and independence for daily living tasks. Goals: Physical Therapy: Initial Goals Bed Mobility Assistance Independent Transfer Mobility Assistance Independent Transfer/Bed Mobility Rolling Walker Recommended Devices Ambulation Independent Ambulation Recommended Devices Rolling Walker Ambulation Distance 150 Stairs Assistance Independent Stair Recommended Devices One Rail Number of Stairs 20 Physical Therapy: Updated Goals Transfer/Bed Mobility None,Rolling Walker Recommended Devices Occupational Therapy: Initial Goals Goals to be Completed in (Days 5-7 ) Upper Body Bathing Routine Supervision/Set Up Upper Body Bathing Assistive Supervision for safety purposes Devices Lower Body Bathing Routine Supervision/Set Up Lower Body Bathing Assistive Supervision for safety purposes Devices Comment Upper Body Dressing Routine Independent Lower Body Dressing Routine Independent Toilet Hygeine and Clothing Independent Management Routine Toilet Transfer Routine Independent Step-In Shower Transfer Supervision/Set Up Routine Tub Transfer Routine Supervision/Set Up Tub Trasnfer Assistive Devices Supervision for safety purposes Functional Transfers for ADL Independent Grooming Routine Independent Feeding Routine Independent Light Housekeeping Tasks Modified Independent with Nutrition: Goals Intervention Goals 1. Adequate PO intake to prevent loss of lean body mass 2. Bowel regularity without constipation/diarrhea 3. Glucoses WNL; hemoglobin A1C will decrease at next lab draw 4. Pt will tolerate PO intake without chewing/ swallowing difficulties Speech: Goals Speech Goal 1 Receptive Language Goal 1 Comments LTG: The patient will improve receptive language skills with use of compensatory strategies as needed to comprend information for daily living tasks. STGs: 1. The patient will follow functional single step commands at 90% accuracy. Status: The patient followed single step commands at 80% accuracy, improving to 100% with min cues. 2. The patient will respond to complex/abstract yes/no questions at 90% accuracy. Status: The patient responded to functional complex/abstract yes/no questions at 70% accuracy. Speech Goal 2 Cognitive-linguistic Speech Goal 2 Comments LTG: The patient will improve cognitive- linguistic skills for improved safety, funciton and independence for daily living tasks with use of compensatory strategies as needed. STGs: 1. The patient will complete functional left visual attention scanning tasks at 95% accuracy. Status: The patient scanned menu for desired items with min cues to read and select items in left column. The patient completed visual scanning task for 2 selected letters with left to right scanning with min cues at 85% accuracy. 2. The patient will complete ongoing assessment for problem solving, sequencing, finances, time management and update POC as needed. Status: The patient stated viable solutions to functional problem scenarios at 80% accuracy. Ongoing assessment of cognitive-linguistic skills warranted. Social Work: Goals Discharge Plan return home with family support and community services as needed Potential for Family Training pt's family is involved and supportive Anticipated Discharge Home Destination Discharge With family support and support services as needed Care Plan: Care Plan ADL's - Improve/Maintain Start: 04/10/17 14:36 Freq: DAILY Status: Active Target: Activity Type Activity Date Activity User E-Sign Co-Sign Detail Recorded Client Recorded Date Recorded By Document 04/11/17 10:45 [id number] 04/11/17 10:46 [id number] 04/11/17 10:45 PMRU Outcome: ADL's/ADL Transfers Orders/Interventions Occupational Therapy Evaluation & Treatment Communication Tool in Patient Room Device Yes: walker, w/ c Patient to receive OT 5x/wk for 60-120 Therex min/day Self Care Management Group Therapy Neuromuscular ReEducation UE/LE ADL's with Assist Yes ADL Transfers with Assist Yes Toileting: Transfers,Clothing Management Yes ,Hygeine w/Assist Light Kitchen/Laundry w/Assist Yes Progression Toward Outcome/Goals Progressing Outcome/Goals Met Pt progressing towards goals. Pt demosntrated ability to don /doff UE/LE dressing items with Supervision. Communication-Improve/Maintain Start: 04/09/17 16:47 Freq: DAILY Status: Active Target: Activity Type Activity Date Activity User E-Sign Co-Sign Detail Recorded Client Recorded Date Recorded By Document 04/15/17 02:58 [id number] 04/15/17 02:58 [id number] 04/15/17 02:58 PMRU Outcome: Communication/Cognitive Status Outcome/Goals Other Other Outcomes/Goals The patient will improve cognitive- linguistic skills with use of strategies for improved safety, function and independence for daily living tasks. Progression Toward Outcomes/Goals Progressing Mobility- Improve/Maintain Start: 04/11/17 12:26 Freq: DAILY Status: Active Target: Activity Type Activity Date Activity User E-Sign Co-Sign Detail Recorded Client Recorded Date Recorded By Document 04/14/17 12:54 [id number] 04/14/17 12:54 [id number] 04/14/17 12:54 PMRU Outcome: Mobility Physical Therapy Evaluation and Yes Treatment Activity OOB with Assistance Yes Device Yes Assistance Yes Patient to be seen 5x/wk for 60-120 min/ Therex day for: Mobility Training Gait Training W/C Mobility Outcome/Goals Maintain/ Achieve Baseline Mobility Status Improve Mobility Status Demonstrates Proper Use of Assistive Devices Free from Complications of Immobility Progression Toward Outcome/Goals Progressing Bed Mobility Yes: independent Transfers Yes: independent with RW Gait x ft Yes: independent with RW W/C Mobility x ft Yes: independetn 150 ' RW Up/Down Stairs Yes: independetn up/ down 20 stairs with 1 rail Medicine Note: Length of Stay: 1 day Anticipated Discharge Destination: Home Tentative Discharge Date: 04/16/17 Discharged to: Home
[2017-04-15] MEDS: Acetaminophen TAB* 325 MG PO PRN (15:34)
[2017-04-16 07:13] VITALS: BP 128/76
[2017-04-16] MEDS: Docusate CAP* 100 MG PO SCH (07:56)
[2017-04-16] MEDS: Lisinopril TAB* 5 MG PO SCH (07:57)
[2017-04-16] MEDS: Acetaminophen TAB* 325 MG PO PRN (10:07)
--- NOTE | 2017-04-17 01:00 | DS ---
CC: Dr. Ridge Mack * DISCHARGE SUMMARY: DATE OF ADMISSION: 04/09/17 DATE OF DISCHARGE: 04/16/17 DISCHARGE DIAGNOSES: 1. Intracerebral hemorrhage. 2. Hypertension. 3. Possible sinusitis. HISTORY OF PRESENT ILLNESS AND HOSPITAL COURSE: For complete history of the events leading up to her rehab stay, please see the history and physical dictated by me on 04/09/17. While on the rehab unit, the patient finished up a course of Keflex for sinusitis. Her dizziness slowly improved. It is unclear if the sinusitis contributed to her dizziness. Her pain medications were changed from Percocet for headaches to Tylenol No. 3 for headaches. This seemed to be effective in relieving her pain. The patient was otherwise medically stable. The patient was seen by Physical and Occupational Therapy as well as Speech Therapy. She made gains with all 3 disciplines. With physial therapy at the time of admission, she was contact guard for transfers, contact guard for ambulation. With occupational therapy, she was contact guard for lower body dressing, contact guard for toileting and toilet transfers. By the time of discharge, she was independent in transfers, independent in ambulating 150 feet. She was supervisions for dressing, supervision for toileting and toilet transfers. The patient was also seen by Speech Therapy. It was noted by Speech Therapy that she had left visual inattention and she had some cognitive deficit. By the time of discharge, the patient was able to follow commands with 90% accuracy. Complex yes or no questions she was able to answer 80% accuracy. She did have ongoing difficulties with neglect. The patient was discharged home, 04/16/17. DISCHARGE DIET: Regular. DISCHARGE MEDICATIONS: Included: 1. Lisinopril 2.5 mg once daily. 2. She was on Tylenol No. 3 one tablet every 6 hours as needed for headache. She was on Tylenol 650 mg every 6 hours as needed for headache. 3. Colace 100 mg twice a day. 4. Vitamin D 1000 units daily. SERVICES AFTER DISCHARGE: The patient will have outpatient physical therapy at [facility]. Followup with Dr. Ridge Mack. Please note that the patient as mentioned in my history and physical did have a workup for the cause of her intracerebral hemorrhage during her admission. CT angiography of the head and neck was normal. She did had an MRI of her brain on 04/08/17, but the MRI showed intraparenchymal hemorrhage, but no associated abnormal enhancement; however, the hematoma was felt to be able to obscure the presence of a small tumor so that she would need repeat imaging after resolution of the hematoma in 2 to 3 months. [id number]/[facility] #: [id number] [facility]
== END 2017-04-16 10:35 | disposition home or self-care (01) | DRG 65 ==
LOC: PMRU 13:21
PROVIDERS: ADMIT Physical Medicine & Rehabilitation; ATTEND Physical Medicine & Rehabilitation
PROC: F07Z5ZZ Bed Mobility Treatment (ICD-10-PCS; principal; 2017-04-09)
PROC: F07Z9ZZ Gait Training/Functional Ambulation Treatment (ICD-10-PCS; 2017-04-09)
PROC: F07Z8ZZ Transfer Training Treatment (ICD-10-PCS; 2017-04-09)
PROC: F08Z0ZZ Bathing/Showering Techniques Treatment (ICD-10-PCS; 2017-04-09)
PROC: F08Z1ZZ Dressing Techniques Treatment (ICD-10-PCS; 2017-04-09)
PROC: F08Z3ZZ Feeding/Eating Treatment (ICD-10-PCS; 2017-04-09)
PROC: F06Z6ZZ Communicative/Cognitive Integration Skills Treatment (ICD-10-PCS; 2017-04-09)
DX: I61.1 Nontraumatic intracerebral hemorrhage in hemisphere, cortical (principal); G81.94 Hemiplegia, unspecified affecting left nondominant side; I10 Essential (primary) hypertension; R41.89 Other symptoms and signs involving cognitive functions and awareness; J32.9 Chronic sinusitis, unspecified; Z79.899 Other long term (current) drug therapy; Z79.82 Long term (current) use of aspirin; Z88.8 Allergy status to other drugs, medicaments and biological substances
CPT/HCPCS: 36415; 80053; 85025; A9270-GY